=== PATIENT | female | born 1980 | race Caucasian/White ===

== ENCOUNTER 2022-07-04 10:42 | Emergency (ER) | payer BC ==
--- OUTSIDE RECORDS SUMMARY | 2022-07-04 10:52 | XMS REPORT | Continuity of Care Document ---
:1980 Author Organization [facility] t Address [address] [place] [address] Care Team Providers Name Role Phone SUMMER DIEGO Primary Care Physician Unavailable Norberto Parnell Attending Clinician Unavailable DR SUMMER DIEGO Attending Clinician Unavailable [phone] Attending Clinician Unavailable DR RUBEN RUSSO Attending Clinician Un available G_Pappas Attending Clinician Unavailable SUAD VALLES Attending Clinician Unavailable DR OCTAVIANO CHAN Attending Clinician Unavailable DR TRISTAN LEE Attending Clinician Unavailable Douglas_Michael Attending Clinician Unavailable DR CASSY GILLESPIE Attending Clinician Unavailable [phone] Attending Clinician Unavailable DR MARIA DOLORES JOSE Attending Clinician Unavailable [phone] Attending Clinician Unavailable [phone] Attending Clinician Unavailable DR CASSY GILLESPIE Attending Clinician Unavailable DR CHRISTIAON STRONG Attending Clinician Unavailable DR SUSAN HAGEN Attending Clinician Unavailable DR JAMES DIEGO Attending Clinician Unavailable DR XIMENA CAMPUZANO Attending Clinician Unavailable DR MELISSA JOHN Attending Clinician Unavailable BRANDIE, DR SANCHEZ Attending Clinician Unavailable , DR ANAYA Attending Clinician Unavailable FRANSISCA, DR KWONG Attending Clinician Unavailable DHARMESH Attending Clinician Unavailable SUMMER DIEGO Attending Clinician Unavailable EMILY, DR SARINA Holland Attending Clinician Unavailable SELINA, DR AKHTAR Attending Clinician Unavailable CORRINE HERRERA Attending Clinician Unavailable ROMEO, DR PALM Attending Clinician Unavailable KANDACE, DR POST Attending Clinician Unavailable TROY ALBRIGHT Attending Clinician Unavailable BRANDIE, DR WHEELER Admitting Clinician Unavailable BARRETT-IBITOYE, DR RUBEN ALICIA Admitting Clinician Un available G_Pappas Admitting Clinician Unavailable DUSTIN, DR BRUMFIELD Admitting Clinician Unavailable OLADE, DR HUDSON Admitting Clinician Unavailable Ayeni_Ibitoye_Olubu Admitting Clinician Unavailable SAMANTHA, DR CASSY Theodore Admitting Clinician Unavailable REBECA, DR WHITTEN Admitting Clinician Unavailable SAMANTHA, DR MADERA Admitting Clinician Unavailable BA, DR ALVARADO Admitting Clinician Unavailable XIAO, DR DAVIS Admitting Clinician Unavailable BRANDIE, DR JAMES Rueda Admitting Clinician Unavailable TATIANNA, DR BUENO Admitting Clinician Unavailable ALVARO, DR MELISSA Moore Admitting Clinician Unavailable BRANDIE, DR SANCHEZ Admitting Clinician Unavailable , DR ANAYA Admitting Clinician Unavailable FRANSISCA, DR KWONG Admitting Clinician Unavailable DHARMESH Admitting Clinician Unavailable SUMMER DIEGO Admitting Clinician Unavailable EMILY, DR SARINA Holland Admitting Clinician Unavailable SELINA, DR AKHTAR Admitting Clinician Unavailable CORRINE HERRERA Admitting Clinician Unavailable ROMEO, DR PALM Admitting Clinician Unavailable KANDACE, DR POST Admitting Clinician Unavailable TROY ALBRIGHT Admitting Clinician Unavailable Payers Payer Name Policy Type Policy Number Effective Date Expiration Date S ource BCBS/BLUE [id number] ADVANTAGE-HMO - OP BCBS[place] [id number] [place] [id number] [facility] (MEDICAID) [id number] 2022 00:00:00 [place] [id number] 2019 2022 ADVANTAGE (HMO) 00:00:00 00:00:00 [id number] 2018 00:00:00 [place] [id number] 2019 00:00:00 [place] [id number] [place] (PPO[place] [facility] [id number] 2015 [facility] 00:00:00 (MEDICAID HMO) Problems Condition Condition Condition Status Onset Resolution Last Treating Co mments Source Name Details Category Date Date Treatment Clinician Date Gastropare Gastropare Problem Active M atagor sis sis 8-30 da syndrome Syndrome 00:00: [facility] 00 al [facility] Program Biliary BILIARY Problem 2019-042020-02-24 EL colic COLIC 04-25 12:19:03 [facility] 02/24/2020 00:00: [facility] active 00 L [id number] HOSPITA SNOMED-CT L COVID-19 COVID-19 Problem 2019-12-03 EL 12/03/201912-02 16:56:11 [facility] active 00:00: [facility] [id number] L SNOMED-CT HOSPITA L Seizure SEIZURE Problem 2017-06-23 EL disorder DISORDER 08:44:15 [facility] active [facility] [id number] L SNOMED-CT HOSPITA L Drug DRUG Problem 2018-01-15 EL seeking SEEKING 11:32:21 [facility] [place] behavior BEHAVIOR [facility] active L [id number] HOSPITA SNOMED-CT L Renal RENAL Problem 2018-04-03 EL stone STONE 18:59:03 [facility] [place] active [facility] [id number] L SNOMED-CT HOSPITA L Migraine MIGRAINE Problem 2019-08-17 EL variants, VARIANTS, 21:51:31 [place] MPO intractabl INTRACTABL ME [facility] e E active L [id number] HOSPITA SNOMED-CT L Gallstone GALLSTONE Problem 2020-02-25 EL active 15:15:00 [facility] [place] [id number] [facility] SNOMED-CT L HOSPITA L Headache HEADACHE Problem 2019-06-23 EL active 22:23:11 [facility] [place] [id number] [facility] SNOMED-CT L HOSPITA L Insomnia INSOMNIA Problem 2017-07-01 EL active 00:51:53 [facility] [place] [id number] [facility] SNOMED-CT L HOSPITA L History of Past Illness Condition Condition Condition Status Onset Resolution Last Treating Co mments Source Name Details Category Date Date Treatment Clinician Date Encounter ENCOUNTER Problem 2020-06-29 2020-06-29 EL for other FOR OTHER 00:00:00 08:28:09 [facility] [place] specified SPECIFIED LILLIAM CLAIR surgical SURGICAL L aftercare [facility] 06/29/2020 L resolved [id number] SNOMED-CT Viral VIRAL Problem 2019-2020-06-19 2020-06-19 E L syndrome SYNDROME 8-21 00:00:00 13:34:18 [place] MPO 12/03/2019 00:00: [facility] 06/19/2020 00 L resolved HOSPITA [id number] L SNOMED-CT Nausea, NAUSEA, Problem 2020-06-19 2020-06-19 EL vomiting VOMITING 00:00:00 13:33:30 [place] MPO and AND [facility] diarrhea DIARRHEA L 06/19/2020 HOSPIT A resolved L [id number] SNOMED-CT Palpitatio PALPITATI Problem 2020-06-19 2020-06-19 EL ns ONS 00:00:00 13:35:01 [facility] 06/19/2020 [facility] resolved L [id number] HOSPITA SNOMED-CT L Shortness SHORTNESS Problem 2020-06-19 2020-06-19 EL of breath OF BREATH 00:00:00 13:32:00 [facility] 06/19/2020 [facility] A resolved L [id number] HOSPITA SNOMED-CT L Sinusitis SINUSITIS Problem 2020-06-19 2020-06-19 EL 06/19/2020 00:00:00 13:32:27 [place] MPO resolved [facility] [id number] L SNOMED-CT HOSPITA L Intractabl INTRACTAB Problem 2020-06-19 2020-06-19 EL e nausea LE NAUSEA 00:00:00 13:33:05 C AMPO and [facility] vomiting VOMITING L 06/19/2020 HOSPIT A resolved L [id number] SNOMED-CT Lactic LACTIC Problem 2020-06-19 2020-06-19 EL acidosis ACIDOSIS 00:00:00 13:33:19 [place] MPO 06/19/2020 [facility] resolved L [id number] HOSPITA SNOMED-CT L Encounter ENCOUNTER Problem 2020-06-19 2020-06-19 EL for FOR 00:00:00 13:34:51 [facility] [place] observatio OBSERVATIO ME [facility] n for N FOR L suspected SUSPECTED HOSP PIOTR exposure EXPOSURE L to other TO OTHER biological BIOLOGICAL agents AGENTS ruled out RULE 06/19/2020 resolved [id number] SNOMED-CT Viral VIRAL Problem 2020-06-19 2020-06-19 E L pharyngiti PHARYNGITI 00:00:00 13:34:36 [facility] [place] s S [facility] 06/19/2020 L resolved HOSPITA [id number] L SNOMED-CT Acute URI ACUTE URI Problem 2020-06-19 2020-06-19 EL 00:00:00 13:34:10 [place] MPO 1 resolved [facility] [id number] L SNOMED-CT HOSPITA L Exposure EXPOSURE Problem 2020-06-19 2020-06-19 EL to TO 00:00:00 13:34:02 [facility] COVID-19 COVID-19 [facility] 06/19/2020 L resolved HOSPITA [id number] L SNOMED-CT Diarrhea DIARRHEA Problem 2020-06-19 2020-06-19 EL 06/19/2020 00:00:00 13:33:54 [place] MPO resolved [facility] [id number] L SNOMED-CT HOSPITA L Cellulitis CELLULITI Problem 2020-06-19 2020-06-19 EL S 00:00:00 13:34:28 [facility] 06/19/2020 [facility] A resolved L [id number] HOSPITA SNOMED-CT L Problem 2020-06-19 2020-06-19 EL finding FINDING 00:00:00 13:35:23 [facility] 06/19/2020 [facility] A resolved L [id number] HOSPITA SNOMED-CT L Multiple MULTIPLE Problem 2020-06-19 2020-06-19 EL skin tags SKIN TAGS 00:00:00 13:32:11 [facility] 06/19/2020 [facility] A resolved L [id number] HOSPITA SNOMED-CT L Abdominal ABDOMINAL Problem 2020-06-19 2020-06-19 EL pain PAIN 00:00:00 13:33:40 [facility] 06/19/2020 [facility] A resolved L [id number] HOSPITA SNOMED-CT L UTI UTI Problem 2020-06-19 2020-06-19 E L 06/19/2020 00:00:00 13:32:55 [place] MPO resolved [facility] [id number] L SNOMED-CT HOSPITA L Acute ACUTE Problem 2020-06-19 2020-06-19 E L lower back LOWER BACK 00:00:00 13:32:37 [facility] pain PAIN [facility] 06/19/2020 L resolved HOSPITA [id number] L SNOMED-CT Musculoske MUSCULOSK Problem 2020-06-19 2020-06-19 EL letal pain ELETAL 00:00:00 13:32:47 [place] MPO PAIN [facility] 06/19/2020 L resolved HOSPITA [id number] L SNOMED-CT History of HISTORY Problem 2020-06-03 2020-06-03 EL migraine OF 00:00:00 08:34:35 [facility] MIGRAINE [facility] 06/03/2020 L resolved HOSPITA [id number] L SNOMED-CT Migraine MIGRAINE Problem 2018-2018-11-13 2018-11-14 EL 11/13/201811-14 00:00:00 19:27:24 [place] MPO resolved 00:00: [facility] [id number] 00 L SNOMED-CT HOSPITA L Allergies, Adverse Reactions, Alerts Allergy Allergy Status Severity Reaction(s) Onset Inactive Treating Comm ents Source Name Type Date Date Clinician Toradol DA Active Unknown [facility] 00:00: Center 00 [place] Drug Active EL C allergy [facility] (disorde [facility] r) L HOSPITA L IODINE Drug Active EL allergy [facility] (disorde [facility] r) L HOSPITA L DILAUDID Drug Active EL allergy [facility] (disorde [facility] r) L HOSPITA L BENADRYL Drug Active EL allergy [facility] (disorde [facility] r) L HOSPITA L Tramadol DA Active Unknown [facility] Sumatrip DA Active Unknown [facility] Hydromor DA Active Unknown [facility] Iodine DA Active Unknown [facility] Benadryl DA Active Unknown [facility] Dilaudid DA Active Unknown [facility] KETOROLA DA Active MODERATE RASH, NAUSEA [facility] IODINE DA Active UNKNOWN [facility] DILAUDID DA Active [facility] BENADRYL DA Active UNKNOWN [facility] Social History Smoking Status Start Date Stop Date Source Never smoker (Never Smoked) Medications Ordered Filled Start Stop Current Ordering Indication Dosage Frequency Signature Comments Components Source Medication Medication Date Date Medication? Clinician (SIG) Name Name Amboctavia 10MG No 10MILLI Ambien [facility]COAS Oral Tablet 3-08 GRAMS 10MG Oral T 00:00: Tablet MEDICAL 00 06/19/2020 CLINIC Unknown ORAL Bedtime 10 MILLIGRAMS [id number] RxNorm TAKE 10 MILLIGRAMS ORAL Bedtime Keppra No 1TABLET Keppra MIDCO 1000MG Oral 3-08 1000MG T Tablet 00:00: Oral MEDICAL 00 Tablet CLINIC 06/19/2020 Unknown BY MOUTH Twice A Day 1 TABLET [id number] RxNorm TAKE 1 TABLET BY MOUTH Twice A Day Paxil 10MG 2019-04 No 1TABLET Paxil CO DCOAS Oral Tablet 1-12 10MG Oral T 00:00: Tablet MEDICAL 00 02/24/2020 CLINIC Unknown BY MOUTH Daily 1 TABLET [id number] RxNorm TAKE 1 TABLET BY MOUTH Daily Protonix 20 2019-04 No 1TABLET Protonix MIDCOAS MG Oral 1-12 20 MG Oral T Tablet, 00:00: Tablet, MEDICAL Delayed 00 Delayed CLINIC Release Release 02/24/2020 Unknown BY MOUTH Daily 1 TABLET [id number] RxNorm TAKE 1 TABLET BY MOUTH Daily Cholestyram Cholestyram No Cholestyra [place] ine Light 4 ine Light 4 mine Light da gram oral gram oral 4 gram Epi scop powder MIX powder MIX oral al ONE (1) ONE (1) powder MIX Hea lth SCOOP IN A SCOOP IN A ONE (1) Outreac CUP OF CUP OF SCOOP IN A h WATER AND WATER AND CUP OF Pro gram DRINK EVERY DRINK EVERY WATER AND 12 HOURS 12 HOURS DRINK FOR UP TO 5 FOR UP TO 5 EVERY 12 DAYS. DAYS. HOURS FOR UP TO 5 DAYS. dicyclomine dicyclomine No dicyclomin [place] 10 mg 10 mg e 10 mg da capsule capsule capsule [facility] p TAKE ONE TAKE ONE TAKE ONE al (1) (1) (1) Health CAPSULE(S) CAPSULE(S) CAPSULE(S) Outreac BY MOUTH BY MOUTH BY MOUTH h FOUR TIMES FOUR TIMES FOUR TIMES Program A DAY A DAY A DAY BEFORE BEFORE BEFORE MEALS MEALS MEALS NEEDED FOR NEEDED FOR NEEDED FOR ABDOMINAL ABDOMINAL ABDOMINAL PAIN. PAIN. PAIN. dicyclomine dicyclomine No 1 QID dicyclomin [place] 20 mg 20 mg e 20 mg da tablet Take tablet Take tablet [facility] 1 tablet 4 1 tablet 4 Take 1 a l times a day times a day tablet 4 Health by oral by oral times a Outrea c route as route as day by h needed. needed. oral route Pro gram as needed. hyoscyamine hyoscyamine No 1 Q12H hyoscyamin [place] ER 0.125 mg ER 0.125 mg e ER 0.125 da and 0.25 mg and 0.25 mg mg and [facility] (0.375 mg) (0.375 mg) 0.25 mg al tablet,exte tablet,exte (0.375 mg) Health nded nded tablet,ext Outreac release release ended h Take 1 Take 1 release Program tablet tablet Take 1 every 12 every 12 tablet hours by hours by every 12 oral route. oral route. hours by oral route. levetiracet levetiracet No levetirace [place] am 500 mg am 500 mg cosby 500 mg da tablet TAKE tablet TAKE tablet [facility] ONE (1) ONE (1) TAKE ONE al TABLET(S) TABLET(S) (1) Healt h BY MOUTH BY MOUTH TABLET(S) Ou treac TWICE A TWICE A BY MOUTH h DAY. DAY. TWICE A Program DAY. lorazepam 1 lorazepam 1 No lorazepam [place] mg tablet mg tablet 1 mg da [facility] pantoprazol pantoprazol No pantoprazo [place] e 40 mg e 40 mg le 40 mg da tablet,soila tablet,soila tablet,del [facility] yed release yed release ayed a l TAKE ONE TAKE ONE release Heal th (1) (1) TAKE ONE Outreac TABLET(S) TABLET(S) (1) h BY MOUTH BY MOUTH TABLET(S) Pr ogram ONCE A DAY. ONCE A DAY. BY MOUTH ONCE A DAY. paroxetine paroxetine No paroxetine [place] 20 mg 20 mg 20 mg da tablet tablet tablet [facility] Protonix Protonix No Protonix [place] [facility] [facility] topiramate topiramate No topiramate [place] 100 mg 100 mg 100 mg da tablet tablet tablet [facility] Vienva 0.1 Vienva 0.1 No 1 Q1D Vienva 0.1 [place] mg-20 mcg mg-20 mcg mg-20 mcg da tablet Take tablet Take tablet [facility] 1 tablet 1 tablet Take 1 al every day every day tablet Hea lth by oral by oral every day Outr eac route. route. by oral h route. Program zolpidem 10 zolpidem 10 No zolpidem [place] mg tablet mg tablet 10 mg da TAKE 1 TAKE 1 tablet [facility] TABLET BY TABLET BY TAKE 1 al MOUTH AT MOUTH AT TABLET BY He alth BEDTIME BEDTIME MOUTH AT Outreac NEEDED FOR NEEDED FOR BEDTIME h SLEEP SLEEP NEEDED FOR Program SLEEP dicyclomine dicyclomine No dicyclomin [place] 20 mg 20 mg e 20 mg da tablet TAKE tablet TAKE tablet [facility] ONE (1) ONE (1) TAKE ONE al TABLET(S) TABLET(S) (1) Healt h BY MOUTH BY MOUTH TABLET(S) Ou treac FOUR TIMES FOUR TIMES BY MOUTH h A DAY A DAY FOUR TIMES P rogram NEEDED. NEEDED. A DAY NEEDED. erythromyci erythromyci No 5mL BID erythromyc [place] n n in da ethylsuccin ethylsuccin ethylsucci [facility] ate 400 ate 400 mack 400 al mg/5 mL mg/5 mL mg/5 mL Health oral powder oral powder [facility] for h suspension suspension suspension Program Take 5 mL Take 5 mL Take 5 mL twice a day twice a day twice a by oral by oral day by route for route for oral route 14 days. 14 days. for 14 days. hyoscyamine hyoscyamine No hyoscyamin [place] sulfate sulfate e sulfate da 0.125 mg 0.125 mg 0.125 mg Epi scop tablet TAKE tablet TAKE tablet al ONE (1) ONE (1) TAKE ONE Healt h TABLET(S) TABLET(S) (1) Outre ac BY MOUTH BY MOUTH TABLET(S) h EVERY FOUR EVERY FOUR BY MOUTH Program HOURS HOURS EVERY FOUR NEEDED FOR NEEDED FOR HOURS 7 DAYS. 7 DAYS. NEEDED FOR 7 DAYS. levetiracet levetiracet No levetirace [place] am 500 mg am 500 mg cosby 500 mg da tablet TAKE tablet TAKE tablet [facility] ONE (1) ONE (1) TAKE ONE al TABLET(S) TABLET(S) (1) Healt h BY MOUTH BY MOUTH TABLET(S) Ou treac TWICE A TWICE A BY MOUTH h DAY. DAY. TWICE A Program DAY. Librax Librax No 1capsul QID Librax [place] [facility] (with (with e(s) (with da clidinium) clidinium) clidinium) [facility] 5 mg-2.5 mg 5 mg-2.5 mg 5 mg-2.5 al capsule capsule mg capsule Hea lth Take 1 Take 1 Take 1 Outreac capsule 4 capsule 4 capsule 4 h times a day times a day times a Program by oral by oral day by route as route as oral route needed. needed. as needed. lorazepam 1 lorazepam 1 No lorazepam [place] mg tablet mg tablet 1 mg da TAKE ONE TAKE ONE tablet [facility] (1) (1) TAKE ONE al TABLET(S) TABLET(S) (1) Healt h BY MOUTH BY MOUTH TABLET(S) Ou treac ONCE A DAY ONCE A DAY BY MOUTH h NEEDED. NEEDED. ONCE A DAY Program NEEDED. metoclopram metoclopram No metoclopra [place] waleska 10 mg waleska 10 mg mide 10 mg da tablet TAKE tablet TAKE tablet [facility] ONE (1) ONE (1) TAKE ONE al TABLET(S) TABLET(S) (1) Healt h BY MOUTH BY MOUTH TABLET(S) Ou treac FOUR TIMES FOUR TIMES BY MOUTH h A DAY A DAY FOUR TIMES Program BEFORE BEFORE A DAY MEALS. MEALS. BEFORE MEALS. pantoprazol pantoprazol No pantoprazo [place] e 40 mg e 40 mg le 40 mg da tablet,soila tablet,soila tablet,del [facility] yed release yed release ayed a l TAKE ONE TAKE ONE release Heal th (1) (1) TAKE ONE Outreac TABLET(S) TABLET(S) (1) h BY MOUTH BY MOUTH TABLET(S) Pr ogram ONCE A DAY. ONCE A DAY. BY MOUTH ONCE A DAY. topiramate topiramate No topiramate [place] 100 mg 100 mg 100 mg da tablet TAKE tablet TAKE tablet [facility] ONE (1) ONE (1) TAKE ONE al TABLET(S) TABLET(S) (1) Healt h BY MOUTH BY MOUTH TABLET(S) Ou treac TWICE A TWICE A BY MOUTH h DAY. DAY. TWICE A Program DAY. Vienva 0.1 Vienva 0.1 No Vienva 0.1 [place] mg-20 mcg mg-20 mcg mg-20 mcg da tablet TAKE tablet TAKE tablet [facility] ONE (1) ONE (1) TAKE ONE al TABLET(S) TABLET(S) (1) Healt h BY MOUTH BY MOUTH TABLET(S) Ou treac EVERY DAY. EVERY DAY. BY MOUTH h EVERY DAY. Program Xifaxan 550 Xifaxan 550 No 1 TID Xifaxan [place] mg tablet mg tablet 550 mg da Take 1 Take 1 tablet [facility] tablet 3 tablet 3 Take 1 al times a day times a day tablet 3 Health by oral by oral times a Outrea c route for route for day by h 14 days. 14 days. oral route P rogram for 14 days. zolpidem 10 zolpidem 10 No zolpidem [place] mg tablet mg tablet 10 mg da TAKE ONE TAKE ONE tablet [facility] (1) (1) TAKE ONE al TABLET(S) TABLET(S) (1) Healt h BY MOUTH BY MOUTH TABLET(S) Ou treac EVERY DAY EVERY DAY BY MOUTH h AT BEDTIME AT BEDTIME EVERY DAY Program FOR 30 FOR 30 AT BEDTIME DAYS. DAYS. FOR 30 DAYS. dicyclomine dicyclomine No dicyclomin [place] 20 mg 20 mg e 20 mg da tablet TAKE tablet TAKE tablet [facility] ONE (1) ONE (1) TAKE ONE al TABLET(S) TABLET(S) (1) Healt h BY MOUTH BY MOUTH TABLET(S) Ou treac FOUR TIMES FOUR TIMES BY MOUTH h A DAY A DAY FOUR TIMES P rogram NEEDED. NEEDED. A DAY NEEDED. erythromyci erythromyci No erythromyc [place] n n in da ethylsuccin ethylsuccin ethylsucci [facility] ate 400 ate 400 mack 400 al mg/5 mL mg/5 mL mg/5 mL Health oral powder [facility] for h suspension suspension suspension Program Take 5 mL Take 5 mL Take 5 mL twice a day twice a day twice a by oral by oral day by route for route for oral route 14 days. 14 days. for 14 days. hyoscyamine hyoscyamine No hyoscyamin [place] sulfate sulfate e sulfate da 0.125 mg 0.125 mg 0.125 mg Epi scop tablet TAKE tablet TAKE tablet al ONE (1) ONE (1) TAKE ONE Healt h TABLET(S) TABLET(S) (1) Outre ac BY MOUTH BY MOUTH TABLET(S) h EVERY FOUR EVERY FOUR BY MOUTH Program HOURS HOURS EVERY FOUR NEEDED FOR NEEDED FOR HOURS 7 DAYS. 7 DAYS. NEEDED FOR 7 DAYS. levetiracet levetiracet No levetirace [place] am 500 mg am 500 mg cosby 500 mg da tablet TAKE tablet TAKE tablet [facility] ONE (1) ONE (1) TAKE ONE al TABLET(S) TABLET(S) (1) Healt h BY MOUTH BY MOUTH TABLET(S) [facility]ac TWICE A TWICE A BY MOUTH h DAY. DAY. TWICE A Program DAY. lorazepam 1 lorazepam 1 No lorazepam [place] mg tablet mg tablet 1 mg da TAKE ONE TAKE ONE tablet [facility] (1) (1) TAKE ONE al TABLET(S) TABLET(S) (1) Healt h BY MOUTH BY MOUTH TABLET(S) Ou treac ONCE A DAY ONCE A DAY BY MOUTH h NEEDED. NEEDED. ONCE A DAY Program NEEDED. metoclopram metoclopram No metoclopra [place] 10 mg waleska 10 mg mide 10 mg da tablet TAKE tablet TAKE tablet [facility] ONE (1) ONE (1) TAKE ONE al TABLET(S) TABLET(S) (1) Healt h BY MOUTH BY MOUTH TABLET(S) Ou treac FOUR TIMES FOUR TIMES BY MOUTH h A DAY A DAY FOUR TIMES Program BEFORE BEFORE A DAY MEALS. MEALS. BEFORE MEALS. omeprazole omeprazole No 1capsul Q1D omeprazole [place] 40 mg 40 mg e(s) 40 mg da capsule,del capsule,del capsule,de [facility] ayed ayed layed al release release release Health Take 1 Take 1 Take 1 Outreac capsule capsule capsule h every day every day every day Program by oral by oral by oral route for route for route for 30 days. 30 days. 30 days. pantoprazol pantoprazol No pantoprazo [place] e 40 mg e 40 mg le 40 mg da tablet,soila tablet,soila tablet,del [facility] yed release yed release ayed a l TAKE ONE TAKE ONE release Heal th (1) (1) TAKE ONE Outreac TABLET(S) TABLET(S) (1) h BY MOUTH BY MOUTH TABLET(S) Pr ogram ONCE A DAY. ONCE A DAY. BY MOUTH ONCE A DAY. topiramate topiramate No topiramate [place] 100 mg 100 mg 100 mg da tablet TAKE tablet TAKE tablet [facility] ONE (1) ONE (1) TAKE ONE al TABLET(S) TABLET(S) (1) Healt h BY MOUTH BY MOUTH TABLET(S) Ou treac TWICE A DAY TWICE A DAY BY MOUTH h TWICE A Program DIRECTED. DIRECTED. DAY DIRECTED. Vienva 0.1 Vienva 0.1 No Vienva 0.1 [place] mg-20 mcg mg-20 mcg mg-20 mcg da tablet TAKE tablet TAKE tablet [facility] ONE (1) ONE (1) TAKE ONE al TABLET(S) TABLET(S) (1) Healt h BY MOUTH BY MOUTH TABLET(S) Ou treac EVERY DAY. EVERY DAY. BY MOUTH h EVERY DAY. Program zolpidem 10 zolpidem 10 No zolpidem [place] mg tablet mg tablet 10 mg da TAKE ONE TAKE ONE tablet [facility] (1) (1) TAKE ONE al TABLET(S) TABLET(S) (1) Healt h BY MOUTH BY MOUTH TABLET(S) Ou treac EVERY DAY EVERY DAY BY MOUTH h AT BEDTIME AT BEDTIME EVERY DAY Program FOR 30 FOR 30 AT BEDTIME DAYS. DAYS. FOR 30 DAYS. Vital Signs Vital Name Observation Time Observation Value Comments Source Height 2022-06-13 08:58:00 172.72 CM Weight 2022-06-13 08:58:00 92.53 KG Height 2022-06-11 20:46:00 157.48 CM Weight 2022-06-11 20:46:00 93.89 KG BP Diastolic 2022-02-19 00:00:00 60 mm[Hg] [facility] Height 2022-02-19 00:00:00 62 [in_i] [facility] BMI (Body Mass 2022-02-19 00:00:00 38.2 kg/m2 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 BP Systolic 2022-02-19 00:00:00 116 mm[Hg] [facility] Body Weight 2022-02-19 00:00:00 209 [lb_av] [place] [facility] BP Diastolic 2022-01-14 00:00:00 70 mm[Hg] [place] [facility] Height 2022-01-14 00:00:00 62 [in_i] [place] [facility] BMI (Body Mass 2022-01-14 00:00:00 38.6 kg/m2 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 BP Systolic 2022-01-14 00:00:00 106 mm[Hg] [place] [facility] Body Weight 2022-01-14 00:00:00 211 [lb_av] [facility] Height 2021-12-02 12:18:00 160.02 CM Weight 2021-12-02 12:18:00 96.43 KG BP Diastolic 2021-11-26 00:00:00 78 mm[Hg] [facility] Height 2021-11-26 00:00:00 62 [in_i] [place] [facility] BMI (Body Mass 2021-11-26 00:00:00 39.5 kg/m2 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 BP Systolic 2021-11-26 00:00:00 109 mm[Hg] [place] [facility] Body Weight 2021-11-26 00:00:00 216 [lb_av] [place] [facility] BP Diastolic 2021-09-03 00:00:00 69 mm[Hg] [place] [facility] Height 2021-09-03 00:00:00 62 [in_i] [place] [facility] BMI (Body Mass 2021-09-03 00:00:00 42 kg/m2 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 BP Systolic 2021-09-03 00:00:00 107 mm[Hg] [place] [facility] Body Weight 2021-09-03 00:00:00 229.8 [lb_av] [facility] Height 2021-05-12 07:36:00 160.02 CM Weight 2021-05-12 07:36:00 97.97 KG Height 2021-05-10 21:14:00 160.02 CM Weight 2021-05-10 21:14:00 117.93 KG Height 2021-03-04 11:16:00 157.48 CM Weight 2021-03-04 11:16:00 106.95 KG Height 2021-02-16 17:23:00 160.02 CM Weight 2021-02-16 17:23:00 103.41 KG Weight 2021-02-04 22:37:00 110.3 KG Height 2021-02-03 08:09:00 160.02 CM Weight 2021-02-03 08:09:00 106.14 KG Height 2021-01-26 17:20:00 160.02 CM Weight 2021-01-26 17:20:00 106.59 KG Height 2021-01-24 14:09:00 160.02 CM Weight 2021-01-24 14:09:00 106.14 KG Height 2020 13:16:00 157.48 CM Weight 2020 13:16:00 104.77 KG Height 2020-12-02 16:26:00 157.48 CM Weight 2020-12-02 16:26:00 104.32 KG Height 2020-11-14 19:01:00 157.48 CM Weight 2020-11-14 19:01:00 100.24 KG Height 2020-09-08 19:21:00 157.48 CM Weight 2020-09-08 19:21:00 99.79 KG Height 2020-09-03 18:28:00 157.48 CM Weight 2020-09-03 18:28:00 101.15 KG BP Diastolic 2020-08-09 00:00:00 88 mm[Hg] [facility] Height 2020-08-09 00:00:00 62 [in_i] [facility] BMI (Body Mass 2020-08-09 00:00:00 43.5 kg/m2 [facility] 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 [facility] Index) [facility] BP Systolic 2020-08-09 00:00:00 131 mm[Hg] [place] [facility] Body Weight 2020-08-09 00:00:00 238 [lb_av] [place] [facility] Height 2020-06-03 18:07:00 160.02 CM Weight 2020-06-03 18:07:00 106.59 KG Height 2020-02-24 05:43:00 160.02 CM Weight 2020-02-24 05:43:00 104.32 KG BP Diastolic 2020-02-23 00:00:00 110 mm[Hg] [place] [facility] Height 2020-02-23 00:00:00 62 [in_i] [place] [facility] BMI (Body Mass 2020-02-23 00:00:00 43 kg/m2 [facility] 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 [facility] Index) [facility] BP Systolic 2020-02-23 00:00:00 134 mm[Hg] [place] [facility] Body Weight 2020-02-23 00:00:00 235 [lb_av] [place] [facility] Height 2020-01-31 12:13:00 162.56 CM Weight 2020-01-31 12:13:00 105.95 KG Height 2020-01-12 00:00:00 62 [in_i] [place] [facility] BMI (Body Mass 2020-01-12 00:00:00 42.9 kg/m2 [facility] 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 [facility] Index) [facility] Body Weight 2020-01-12 00:00:00 234.4 [lb_av] [place] [facility] Height 2019-12-04 15:38:00 157.48 CM Weight 2019-12-04 15:38:00 97.52 KG BP Diastolic 2019-11-23 00:00:00 77 mm[Hg] [place] [facility] Height 2019-11-23 00:00:00 62 [in_i] [place] [facility] BMI (Body Mass 2019-11-23 00:00:00 40.9 kg/m2 [place] 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 [facility] Index) [facility] BP Systolic 2019-11-23 00:00:00 122 mm[Hg] [place] [facility] Body Weight 2019-11-23 00:00:00 223.4 [lb_av] [place] [facility] BP Diastolic 2019-11-15 00:00:00 85 mm[Hg] [place] [facility] Height 2019-11-15 00:00:00 62 [in_i] [place] [facility] BMI (Body Mass 2019-11-15 00:00:00 42.7 kg/m2 [facility] 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 [facility] Index) [facility] BP Systolic 2019-11-15 00:00:00 120 mm[Hg] [place] [facility] Body Weight 2019-11-15 00:00:00 233.4 [lb_av] [place] [facility] BP Diastolic 2019-11-04 00:00:00 87 mm[Hg] [place] [facility] Height 2019-11-04 00:00:00 62 [in_i] [place] [facility] BMI (Body Mass 2019-11-04 00:00:00 42.2 kg/m2 [facility] 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 [facility] Index) [facility] BP Systolic 2019-11-04 00:00:00 128 mm[Hg] [place] [facility] Body Weight 2019-11-04 00:00:00 230.6 [lb_av] [place] [facility] BP Diastolic 2019-08-25 00:00:00 86 mm[Hg] [place] [facility] Height 2019-08-25 00:00:00 62 [in_i] [place] [facility] BMI (Body Mass 2019-08-25 00:00:00 41.9 kg/m2 [facility] 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 [facility] Index) [facility] BP Systolic 2019-08-25 00:00:00 135 mm[Hg] [place] [facility] Body Weight 2019-08-25 00:00:00 229 [lb_av] [place] [facility] Height 2019-08-17 09:18:00 160.02 CM Weight 2019-08-17 09:18:00 83.91 KG BP Diastolic 2019-08-12 00:00:00 100 mm[Hg] [place] [facility] Height 2019-08-12 00:00:00 62 [in_i] [facility] BMI (Body Mass 2019-08-12 00:00:00 41.9 kg/m2 [place] 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 [facility] Index) [facility] BP Systolic 2019-08-12 00:00:00 154 mm[Hg] [facility] Body Weight 2019-08-12 00:00:00 229 [lb_av] [facility] Weight 2019-08-10 12:59:00 90.71 KG Height 2019-07-01 05:42:00 157.48 CM Weight 2019-07-01 05:42:00 90.71 KG Weight 2019-06-28 07:42:00 90.71 KG Height 2019-06-23 21:30:00 157.48 CM Weight 2019-06-23 21:30:00 90.71 KG Height 2019-03-12 08:08:00 157.48 CM Weight 2019-03-12 08:08:00 88.9 KG Procedures Procedure Date / Time Performing Clinician Source Performed Esophagogastroduodenoscopy 2022-02-06 00:00:00 [place] [facility] Colonoscopy 2021 00:00:00 [facility] NM, gastric emptying scan 2021-11-26 00:00:00 [place] [facility] [place], transvaginal 2020-08-09 00:00:00 [facility] Cholecystectomy 2020-03-06 00:00:00 Hendrix [facility] [place], abdomen, complete 2020-02-23 00:00:00 [facility] 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 [facility] [place], transvaginal 2019-08-25 00:00:00 [facility] Delivery [facility]rix [facility] Procedure on Gallbladder [place] [facility] Plan of Care Planned Activity Planned Date Details Comments Source Diagnostic Test 2022-01-14 gastrin, serum [code [place] [facility] Pending 00:00:00 = gastrin, serum] [facility] reach Program Diagnostic Test 2022-01-14 5-hiaa/creatinine, [place] 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 [facility] Pending 00:00:00 ratio, 24h urine Health Outr each [code = Program 5-hiaa/creatinine, ratio, 24h urine] Diagnostic Test 2022-01-14 metanephrine, Hendrix E piscopal Pending 00:00:00 24-hour urine [code Health O utreach = metanephrine, Program 24-hour urine] Diagnostic Test 2022-01-14 histamine, 24-hour [place] 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 [facility] Pending 00:00:00 urine [code = Health Outreac h histamine, 24-hour Program urine] Diagnostic Test 2022-01-14 vasoactive Hendrix Ep iscopal Pending 00:00:00 intestinal peptide Health Ou treach (vip), serum [code = Program vasoactive intestinal peptide (vip), serum] Diagnostic Test 2022-01-14 calcitonin, serum [place] [facility] Pending 00:00:00 [code = calcitonin, Health O utreach serum] Program Diagnostic Test 2022-01-14 somatostatin, plasma [place] [facility] Pending 00:00:00 [code = Health Outreach somatostatin, Program plasma] Diagnostic Test 2022-01-14 acth, plasma [code = [place] [facility] Pending 00:00:00 acth, plasma] Health Outreac h Program Diagnostic Test 2022-01-14 TSH + free T4, serum [place] [facility] Pending 00:00:00 [code = TSH + free Health Ou treach T4, serum] Program Encounters Start End Encounter Admission Attending Care Care Encounter Source Date/Time Date/Time Type Type Clinicians Facility Department ID 2022-06-24 Inpatient ROSSY Smith AULTMAN [facility] [id number] [place] 14:30:00 Norberto [id number] Critical access hospital 2022-04-26 Outpatient [facility] [place]IE[place] [id number] 14:13:21 [id number] [facility] 2022-04-15 Outpatient SUMMER DIEGO ELCAMPO ELCAMPO [id number] El 09:08:45 [id number] [facility] 2022-01-29 Outpatient ELCAMPO ELCAMPO [id number] El 10:39:13 [id number] [facility] 2021-12-13 Outpatient ELCAMPO ELCAMPO [id number] El 11:52:05 [id number] [facility] 2021-12-12 Outpatient ELCAMPO ELCAMPO [id number] El 10:40:23 [id number] [facility] 2021-12-11 Outpatient ELCAMPO ELCAMPO [id number] El 12:30:05 [id number] [facility] 2020-09-08 Inpatient C LUCY [facility] [id number] [facility] 14:14:00 LARA [facility] 2022-07-01 2022-07-01 Outpatient G_Pappas [facility] [id number] [place] 00:00:00 00:00:00 0320 [facility] 2022-06-25 2022-06-25 [id number] 13:07:00 17:35:00 SUAD [facility] 2022-06-24 2022-06-24 Outpatient G_Pappas MMG MMG [id number] [place] 00:00:00 00:00:00 0313 [facility] 2022-06-13 2022-06-13 Emergency E DUSTIN [facility] [id number] [facility] 08:48:00 11:02:00 OCTAVIANO [facility] 2022-06-11 2022-06-11 Outpatient E ROSA [facility] [id number] [facility] 20:24:00 21:17:00 TRISTAN [facility] 2022-06-07 2022-06-07 Outpatient N SUM[facility] [place] ELCAMPO NON EVELYN [facility] [id number] El 13:05:00 13:05:00 [id number] [facility] 2022-06-07 2022-06-07 Outpatient SUMMER RUSSELL KENNY DIEGO [id number] El 10:42:00 00:00:00 [id number] DANO [facility] 2022-05-13 2022-05-13 Outpatient M [facility] [place] [facility] [id number] El 13:35:00 00:00:00 [id number] [facility]O [facility] 2022-04-23 2022-04-23 Outpatient M SUM[facility] DIEGO KENNY DIEGO [id number] El 14:13:00 00:00:00 [id number] [facility] 2022-04-12 2022-04-12 Outpatient M SUM[facility] DIEGO KENNY DIEGO [id number] El 09:13:00 00:00:00 [id number] [facility]O [facility] 2022-04-11 2022-04-11 Outpatient SUMMER RUSSELL KENNY [place]IE[place] [id number] El 23:42:00 00:00:00 [id number] [facility] 2022-04-09 2022-04-09 Outpatient [facility] [place] [facility] [id number] El 16:41:00 00:00:00 [id number] [facility]O [facility] 2022-04-02 2022-04-02 Outpatient N SUM[facility] [place] MAMMO [id number] El 15:48:00 15:48:00 [id number] [facility] 2022-03-21 2022-03-21 Outpatient N [facility] [place] NON [facility] [id number] El 13:23:00 13:23:00 [id number] [facility] 2022-03-21 2022-03-21 Outpatient M [facility] [place] KENNY DIAZEN [id number] El 14:02:00 00:00:00 [id number] [facility]ANO [facility] 2022-03-14 2022-03-14 Outpatient SUMMER RUSSELL [id number] El 15:24:00 00:00:00 [id number] [facility] 2022-03-04 2022-03-04 Outpatient SUMMER RUSSELL [id number] El 08:30:00 00:00:00 [id number] [facility] 2022-02-20 2022-02-20 Outpatient Ayeni_[place]bito [place] [id number] [place] 00:00:00 00:00:00 ye[facility]ubu [facility] 2022-02-20 2022-02-20 Outpatient [place] [id number] [place] 00:00:00 00:00:00 ye_Olubu 0309 [facility] 2022-02-19 2022-02-19 Outpatient [place] [id number] [place] 00:00:00 00:00:00 ye_Olubu 1108 [facility] 2022-02-19 2022-02-19 Cassy Hartman [facility] [place] - [id number] [place] 00:00:00 00:00:00 Abelardo Gillespie MD: [id number] Y[facility]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 2022-02-18 2022-02-18 Outpatient Ayeni_Ibito [place] [id number] [place] 00:00:00 00:00:00 ye_Olubu 1107 [facility] 2022-02-12 2022-02-12 Outpatient [id number] 15:42:00 15:42:00 [id number] 2022-02-12 2022-02-12 Outpatient N SUMMER DIEGOTHE [place] NON EVELYN ENT [id number] El 15:42:00 15:42:00 [id number] [facility] 2022-02-12 2022-02-12 Outpatient M SUM[facility] [place]IE[place] [id number] El 10:35:00 00:00:00 [id number] DANO [facility] 2022-02-06 2022-02-06 [facility] MALINA RONALD [id number] El 07:22:00 10:30:00 [id number] [facility] 2022-02-04 2022-02-04 Outpatient N MARIA DOLORES JOSE [facility] [id number] El 15:45:00 15:45:00 [id number] Cam [facility] [id number] [facility] 2022-01-15 2022-01-15 Outpatient [place] [id number] [place] 00:00:00 00:00:00 ye_Olubu 1004 [facility] 2022-01-14 2022-01-14 Outpatient [place] [id number] [place] 00:00:00 00:00:00 ye_Olubu 1003 [facility] 2022-01-14 2022-01-14 Cassy Hartman [facility] [place] - [id number] [place] 00:00:00 00:00:00 Abelardo Gillespie MD: [id number] 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 2021 2021 Outpatient N CASSY GILLESPIE [facility] DAY MALINA RONALD [id number] El 07:28:00 10:56:00 [id number] [facility] 2021-12-13 2021-12-13 Outpatient N [facility]IA DOLORES [facility] [id number] [place] 12:00:00 12:00:00 [id number] Cam po [id number] [facility] 2021-12-11 2021-12-11 Outpatient N CASSY GILLESPIE [facility] [id number] El 12:27:00 12:27:00 [id number] [facility] 2021-12-02 2021-12-02 Emergency E BACHRISTIANO [facility] [id number] [facility] 12:18:00 15:07:00 Medica l Bostic 2021-11-26 2021-11-26 Cassysalo Hartman Ayeni_Ibito [facility] - 955 [place] 00:00:00 00:00:00 Jesse Gillespie 0815 cindy moore MD: [id number] 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 2021-09-03 2021-09-03 Olubukola Ayeni_Ibito [facility] [place] - [id number] [place] 00:00:00 00:00:00 Omobolaji Jesse Hendrix 0523 d oscar Hopper MD: Yazdanism Epi scop [id number] [address] , Ph. 2021-08-30 2021-08-30 Outpatient Ayeni_Ibito [place] [id number] [place] 05:10:00 05:10:00 Jesse 0519 da [facility] 2021-05-12 2021-05-12 Outpatient E SUSAN HAGEN [facility] [id number] [facility] 07:29:00 09:35:00 Medica l Bostic 2021-05-10 2021-05-10 Outpatient E DIEGO, JAMES [facility] [id number] [facility] 21:03:00 23:45:00 Medica l Center 2021-03-04 2021-03-04 Emergency E OETaylor, [facility] [id number] [facility] 11:03:00 13:36:00 XIMENA Medic al Bostic 2021-02-16 2021-02-16 Outpatient E ALVARO, [facility] [id number] [facility] 17:18:00 19:03:00 MELISSA Medica l [facility] 2021-02-04 2021-02-05 Emergency E BACHRISTIANO [facility] [id number] [facility] 22:28:00 01:12:00 Medica l Center 2021-02-03 2021-02-03 Outpatient E XIAOSUSAN [facility] [id number] [facility] 08:09:00 13:01:00 Medica l Bostic 2021-01-26 2021-01-26 Outpatient E BRANDIE [facility] [id number] [facility] 17:18:00 18:57:00 LAURA [facility] 2021-01-24 2021-01-24 Outpatient E CALIXTO, [facility] [id number] [facility] 14:01:00 15:05:00 WASIM [facility] 2020 2020 Outpatient E BRANDIE JAMES [facility] [id number] [facility] 13:06:00 15:35:00 Medica l Bostic 2020-12-02 2020-12-02 Outpatient E ALVARO, [facility] [id number] [facility] 16:26:00 18:20:00 MELISSA Medica l [facility] 2020-11-14 2020-11-14 Outpatient E GONGROAVARGHESE Palacios [facility] [id number] [facility] 18:20:00 21:07:00 Medica l Center 2020-09-08 2020-09-08 Outpatient E TATIANNA, [facility] [id number] [facility] 19:10:00 21:10:00 XIMENA Medic al Bostic 2020-09-03 2020-09-03 Outpatient E ALVARO, [facility] [id number] [facility] 18:20:00 20:27:00 MELISSA Medica l [facility] 2020-08-22 2020-08-22 Outpatient LISTER_MELI MEH[facility] VAHOP 955 [place] 12:32:00 12:32:00 SSA 0511 [facility] 2020-08-09 2020-08-09 Ruben CHANDLER_MELI [place] - 9557 [place] 00:00:00 00:00:00 Omoblisandro [facility] Hendrix 0428 ha Hopper MD: Yazdanism Epi scop [id number] [place] [facility] 59 [facility], [facility] [address], [place], [place] [address] , Ph. 2020-06-03 2020-06-03 Outpatient E BRANDIE [facility] [id number] [facility] 17:55:00 19:35:00 [facility] 2020-03-14 2020-03-14 Outpatient MUKESH_JUANI MEHOP [facility] 955 [place] 03:24:00 03:24:00 SSA 1201 [facility] 2020-03-01 2020-03-01 Outpatient G_Pappas MMG MMG [id number] [place] 02:18:00 02:18:00 1118 da [facility] 2020-02-24 2020-02-24 Outpatient LISTER_JUANI MEHOP [facility] 955 [place] 09:41:00 09:41:00 SSA 1112 [facility] 2020-02-24 2020-02-24 [facility] [id number] 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 2020-01-31 2020-01-31 Outpatient [facility] [id number] [facility] 11:25:00 14:40:00 LAURA Medica [facility] 2020-01-27 2020-01-27 Outpatient LISTER_MELI MEHOP MEHOP 955 [place] 04:39:00 04:39:00 SSA 1015 [facility] 2020-01-13 2020-01-13 Outpatient LISTER_MELI MEHOP MEHOP 955 [place] 11:00:00 11:00:00 SSA 1001 [facility] 2020-01-12 2020-01-12 Cassy Hartman LISTER_MELI [place] - 955 [place] 00:00:00 00:00:00 Samantha [facility] Hendrix 0930 ha SANON: [id number] 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 2019-12-04 2019-12-04 Outpatient Amalia JOHN [facility] [id number] [facility] 15:37:00 19:00:00 MELISSA Medica [facility] 2019-11-23 2019-11-23 Olubukola LISTER_MELI [facility] - 9557 [place] 00:00:00 00:00:00 Omobolahumphrey [facility] Hendrix 0811 ha Hopper MD: Yazdanism Epi scop [address] A, [place] [address] , Ph. 2019-11-16 2019-11-16 Outpatient LISTER_MELI MEHOP MEHOP 955 [place] 04:27:00 04:27:00 SSA 0804 [facility] 2019-11-15 2019-11-15 Olubukola LISTER_MELI [place] - 9557 [place] 00:00:00 00:00:00 Omobolaji [facility] Hendrix 0803 ha Hopper MD: Yazdanism Epi scop [id number] HOP - [address], [place] [address] , Ph. 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 2019-08-17 2019-08-17 Outpatient Amalia DIEGO [facility] [id number] [facility] 09:10:00 10:00:00 SUMMER Medica [facility] 2019-08-17 2019-08-17 Outpatient LISTER_MELI MEHOP MEHOP 955 [place] 06:10:00 06:10:00 SSA 0505 [facility] 2019-08-12 2019-08-12 Yumiko CHANDLER_MELI [place] - [id number] [place] 00:00:00 00:00:00 Leisa SSA Hendrix 0430 da [place]esh, Yazdanism Episco p MAINTENANCE PIPEFITTER: [address] F N, SOLAR [facility]ST[facility] [place] [address] Progr am , Ph. 2019-08-11 2019-08-11 Outpatient BHARATH CARRILLO [facility] 955 [place] 10:09:00 10:09:00 SSA 0429 [facility] 2019-08-10 2019-08-10 Outpatient E DIAZ [facility] [id number] [facility] 12:45:00 14:37:00 SARINA Medica l [facility] 2019-07-01 2019-07-01 Outpatient E BA, CHRISTIANO [facility] [id number] [facility] 05:41:00 07:30:00 Medica l Bostic 2019-06-28 2019-06-28 Outpatient E [facility] [id number] [facility] 07:27:00 10:15:00 WASIM Medica l [facility]ostic 2019-06-23 2019-06-23 Outpatient E TAE, CHRISTIANO [facility] [id number] [facility] 21:29:00 23:55:00 Medica l Bostic 2019-03-12 2019-03-12 Outpatient E SELINA [facility] [id number] [facility] 07:46:00 09:15:00 HASAN Medica l [facility] 2019-03-11 2019-03-11 Outpatient E JAMES DIEGO [facility] [id number] [facility] 06:06:00 09:12:00 Medica l Bostic 2018-07-05 2018-07-05 Outpatient E EMILY [facility] [id number] [facility] 09:08:00 13:47:00 SARINA [facility] 2017-11-19 2017-11-19 Outpatient E JAVIER [facility] [id number] [facility] 13:08:00 14:20:00 CORRINE [facility] 2017-09-23 2017-09-25 Inpatient C ROMEO [facility] [place] [id number] [facility] 13:05:00 18:59:00 NÉSTOR [facility] 2017-09-15 2017-09-15 Outpatient [place] WALTERS [facility] [place] [id number] [facility] 00:17:00 03:40:00 [facility]ST[facility] 2017-08-25 2017-08-26 Outpatient [place] JERONIMO [facility] [place] [id number] [facility] 23:04:00 01:34:00 SEJAL [facility] 2017-08-21 2017-08-21 Outpatient [place] JERONIMO [facility] [place] [id number] [facility] 11:06:00 12:07:00 SEJAL Medica [facility] 2017-08-14 2017-08-14 Outpatient [place]cy JERONIMO [facility] [place] [id number] [facility] 16:44:00 19:02:00 [facility] 2017-05-18 2017-05-18 Emergency E , [facility] [id number] [facility] 06:27:00 09:34:00 WAS [facility] 2017-05-15 2017-05-15 Outpatient G_Pappas [facility] [id number] [place] 10:05:00 10:05:00 [facility] 2017-05-09 2017-05-09 Emergency E TAE, [facility] [id number] [facility] 20:08:00 22:31:00 [facility] 2017-05-07 2017-05-07 Outpatient Quincy JERONIMO, [facility] [id number] [facility] 11:00:00 23:59:00 [facility] 2017-05-06 2017-05-06 Emergency E ALBRIGHT, [facility] [id number] [facility] 13:49:00 15:55:00 [facility] 2016-11-23 2016-11-23 Emergency E CALIXTO, [facility] [id number] [facility] 11:03:00 11:51:00 WAS [facility] 2016-11-21 2016-11-21 Emergency E JAVIER, [facility] [id number] [facility] 11:31:00 12:01:00 [facility] Results Test Description Test Time Test Comments Results Result Comments Source CBC (INCLUDES AUTOMATED DIFFERENTIAL)* 2022-06-13 10:02:00 Test Item Value Reference Range Interpretation Comme nts WBC (test code = WBC) 7.7 10\S\3/uL 4.5-11.0 RBC (test code = RBC) 4.73 10\S\6/uL 4.30-5.70 HGB (test code = HBG) 14.8 g/dL 12.0-15.5 HCT (test code = HCT) 46.4 % 35.0-44.0 H MCV (test code = MCV) 98.1 fL 81.0-99.0 MCH (test code = MCH) 31.3 pg 27.0-31.0 H MCHC (test code = MCHC) 31.9 g/dL 32.0-36.0 L RDW (test code = RDW) 12.3 % 11.5-14.5 PLT (test code = PLT) 349 10\S\3/uL 130-400 MPV (test code = MPV) 8.9 fL 9.4-12.4 L NEUTROP # (test code = NE#) 4.3 10\S\3/uL 1.6-8.0 LYMPH # (test code = LY#) 2.6 10\S\3/uL 1.1-3.5 MONOCYTE # (test code = MO#) 0.5 10\S\3/uL 0.0-1.1 EOSINOPH # (test code = EO#) 0.2 10\S\3/uL 0.0-0.7 BASOPHIL # (test code = BA#) 0.1 10\S\3/uL 0.0-0.3 IG # (test code = IG#) 0.01 10\S\3/uL 0.00-0.06 NRBC # (test code = NRBC#) 0.00 10\S\3/uL 0.00-0.01 NEUTROPH % (test code = NE%) 56.0 % 35.0-73.0 LYMPH % (test code = LY%) 34.1 % 20.0-55.0 MONO % (test code = MO%) 5.9 % 2.5-10.0 EOSINOPH % (test code = EO%) 2.9 % 0.0-5.0 BASOPHIL % (test code = BA%) 1.0 % 0.0-2.0 IG % (test code = IG%) 0.1 % 0.0-0.8 NRBC% (test code = NRBC%) 0.0 % 0.0-0.2 MANDIFF (test code = WMDIFF) NO NO RBC MORPH (test code = WRBCMOR) NORMAL SERUM MONOCLONAL *WW*2022-06-13 09:52:00 Test Item Value Reference Range Interpretation Comments PREG SRM (test code = PGS) NEGATIVE NEGATIVE BASIC METABOLIC PANEL 2022-06-13 09:50:00 Test Item Value Reference Range Interpretation Comments GLUCOSE (test code = 91 mg/dL 75-100 06D) SODIUM (test code = 139 mmol/L 136-145 01A) POTASSIUM (test code = 3.4 mmol/L 3.6-5.1 L 01B) CHLORIDE (test code = 107 mmol/L 98-107 04A) CO2 (test code = 02A) 25 mmol/L 20-31 ANION GAP (test code = 10.4 mmol/L ANG) BUN (test code = 05D) 14 mg/dL 9-23 CREATININE (test code 0.9 mg/dL 0.6-1.0 = 03E) GFR (test code = GFR) 80 mL/min/1.73m\S\2 >=90 L GFR 93 mL/min/1.73m\S\2 >=90 (test code = GFRAA) EGFR (test code = eGFR BY CKD-EPI EGFR) CALCULATION IS NOT RECOMMENDED FOR PATIENTS UNDER 18 YEARS OF AGE. BUN/CREA (test code = 16 12-20 BCR) CALCIUM (test code = 9.1 mg/dL 8.3-10.6 09D) CT ABDOMEN AND PELVIS WITHOUT CONTRAST 2021-12-02 14:44:39 [facility] : 1980 Sex: FEXAM: CT ABDOMEN PELVIS WITHOUT IV CONTRASTLOCATION: [id number]: Abdominal painTECHNIQUE: Serial axial CT images were obtained from above the diaphragm to the proximal femurs without the administration of intravenouscontrast. Oral contrast was not administeredPhase(s): Non-contrastReformats: Standard coronal and sagittal reformats provided.The exam was performed according to our departmental dose- optimization program, which includes automated exposure control, adjustment of the mA and/or kV according to patient size and/or use of iterative reconstruction technique.COMPARISON: CT abdomen pelvis 01/31/2020, 07/01/19 20FINDINGS:STATEMENTS: Limited evaluation of solid organs and vasculature without the use of intravenous contrast.LUNG BASES: Unremarkable.LIVER: Normal attenuation and contour. No focal lesions.BILIARY: Status post cholecystectomy. No intrahepatic or extrahepatic biliary ductal dilation.PANCREAS: Unre markable.SPLEEN: Unremarkable.ADRENALS: Unremarkable.KIDNEYS: The kidneys appear normal in size. No hydronephrosis. 2 mm nonobstructing kidney stone seen in the left mid collecting system.GENITOURINARY: The ureters are nondilated throughout. The bladder is incompletely distended and poorly assessed with no gross abnormalities. The uterus appears normal. No adnexal masses.GASTROINTESTINAL: The distal esophagus is unremarkable. The stomach is nondistended and poorly assessed. The small and large bowelloops demonstrate no signs of obstruction or focal inflammation. No diverticulosis. The appendix is not visualized.VASCULAR: The abdominal aorta is nonaneurysmal. No significant atherosclerosis.LYMPH NO FLOR: No enlarged lymph nodes.MESENTERY: Grossly unremarkable with no free air or loculated fluid collections.SOFT TISSUES: Partially visualized 4.9 x 4.1 cm slightly complex cystic lesion noted within the left posterior musculature of the lower extremity, suspect semitendinosis.BONES: No acute osseous findings.IMPRESSION:1. No acute intra-abdominal process identified. 2 mm left- sided nonobstructing kidney stone.2. Partially visualized 4.9 cm slightly complex cystic lesion within the left posterior muscle of the lower extremity, suspect semitendinosis.Electronically signed by: Horacio Nazario DO 12/02/2021 2:44 PM CDT [id number] WITH MICRO *WW*2021-12-02 14:22:00 Test Item Value Reference Range Interpretation Comments COLOR (test code = COLU) YELLOW YELLOW CLARITY (test code = CLA) SLT HAZY CLEAR A GLUCOSE UR (test code = UA GLUCOSE) 3+ NEGATIVE A BILI UR (test code = BILE) NEGATIVE NEGATIVE KETONES UR (test code = LEIDY) TRACE NEGATIVE A SP GRAVITY (test code = SPGR) >=1.030 1.005-1.030 PH UR (test code = PH) 6.0 4.5-8.0 PROTEIN UR (test code = PU) TRACE NEGATIVE A UROBIL UR (test code = UROQ) 0.2 EU/dL 0.2-1.0 NITRITE UR (test code = NITRITE) NEGATIVE NEGATIVE BLOOD UR (test code = UA BLOOD) NEGATIVE NEGATIVE LEUK ES UR (test code = LEUK) TRACE NEGATIVE A WBC UR (test code = UWBC) 5 /HPF 0-5 RBC UR (test code = URBC) 2 /HPF 0-2 EPITH UR (test code = UEPC) FEW /LPF FEW BACTERIA UR (test code = UBACT) FEW /HPF NONE A CAST UR (test code = CAST) /LPF NONE CRYSTAL UR (test code = CRYU) / LPF NONE MUCUS UR (test code = MUC) FEW / HPF NONE A AMORPH UR (test code = LUCAS) / HPF NONE TRICH UR (test code = UTRICH) /HPF NONE YEAST UR (test code = UY) FEW /HPF NONE A SPERM UR (test code = USPERM) /HPF NONE URINE MONOCLONAL *[facility]2021-12-02 14:16:00 Test Item Value Reference Range Interpretation Comments PREG UR (test code = PGU) NEGATIVE NEGATIVE PRO TIME AND PTT *[facility]2021-12-02 14:10:00 Test Item Value Reference Range Interpretation Comments PT (test code = 12.3 s 9.8-13.6 TT) INR (test code = 1.1 INR) INRH (test code = SUGGESTED THERAPEUTIC INRH) RANGE FOR INR: 2.5 - 3.5 For Patients with Prosthetic Valves or Patients with recurrent Thromboembolic Events 2.0 - 3.0 For Most Other Applications PTT (test code = 24.3 s 20.2-38.0 PTT) PTTH (test code = To monitor the PTTH) effectiveness of heparin, we offer the Anti-Xa (Heparin Assay). It can be used for either unfractionated or LMW Heparin. Order Code is ANTI-XA CBC WITH MORPHOLOGY 2021-12-02 13:45:00 Test Item Value Reference Range Interpretation Comments WBC (test code = WBC) 8.7 10\S\3/uL 4.5-11.0 RBC (test code = RBC) 4.67 10\S\6/uL 4.30-5.70 HGB (test code = HBG) 14.6 g/dL 12.0-15.5 HCT (test code = HCT) 44.0 % 35.0-44.0 MCV (test code = MCV) 94.2 fL 81.0-99.0 MCH (test code = MCH) 31.3 pg 27.0-31.0 H MCHC (test code = MCHC) 33.2 g/dL 32.0-36.0 RDW (test code = RDW) 12.9 % 11.5-14.5 PLT (test code = PLT) 382 10\S\3/uL 130-400 MPV (test code = MPV) 9.3 fL 9.4-12.4 L NEUTROP # (test code = NE#) 5.1 10\S\3/uL 1.6-8.0 LYMPH # (test code = LY#) 2.8 10\S\3/uL 1.1-3.5 MONOCYTE # (test code = 0.6 10\S\3/uL 0.0-1.1 MO#) EOSINOPH # (test code = 0.2 10\S\3/uL 0.0-0.7 EO#) BASOPHIL # (test code = 0.1 10\S\3/uL 0.0-0.3 BA#) IG # (test code = IG#) 0.02 10\S\3/uL 0.00-0.06 NRBC # (test code = NRBC#) 0.00 10\S\3/uL 0.00-0.01 NEUTROPH % (test code = 58.9 % 35.0-73.0 NE%) LYMPH % (test code = LY%) 31.9 % 20.0-55.0 MONO % (test code = MO%) 6.4 % 2.5-10.0 EOSINOPH % (test code = 1.8 % 0.0-5.0 EO%) BASOPHIL % (test code = 0.8 % 0.0-2.0 BA%) IG % (test code = IG%) 0.2 % 0.0-0.8 NRBC% (test code = NRBC%) 0.0 % 0.0-0.2 PLT EST (test code = ADEQUATE ADEQUATE PLTEST) PLT MORPH (test code = NORMAL (1.5-3 um) NORMAL PLTMOR) SARS-CoV (RAPID ANTIGEN) WW2021-12-02 13:42:00 Test Item Value Reference Range Interpretation Comments SARS-CoV (ANTIGEN) NEGATIVE NEGATIVE (test code = COVAG) COVID AG (test This test has been code = COVAGC) marketed under the FDA Emergency Use Authorization (EUA) to meet challenges of the COVID-19 pandemic. The validation standards normally enforced by the FDA and the [employer] the [employer] (CAP) are more stringent than those required for this test. Therefore, the result should be interpreted with caution and close attention to other clinical and epidemiological data THYROID PANEL/SCREEN (TSH) *WW*2021-12-02 13:34:00 Test Item Value Reference Range Interpretation Comments TSH (test code = WTSH) 1.496 uIU/mL 0.358-3.740 COMPREHENSIVE METABOLIC MONTANO 2021-12-02 13:28:00 Test Item Value Reference Range Interpretation Comments GLUCOSE (test code 98 mg/dL 75-100 = 06D) SODIUM (test code 142 mmol/L 136-145 = 01A) POTASSIUM (test 3.3 mmol/L 3.6-5.1 L code = 01B) CHLORIDE (test 109 mmol/L 98-107 H code = 04A) CO2 (test code = 20 mmol/L 20-31 02A) ANION GAP (test 16.3 mmol/L code = ANG) BUN (test code = 9 mg/dL 9-23 05D) CREATININE (test 0.7 mg/dL 0.6-1.0 code = 03E) GFR (test code = 108 See_Comment [Automated GFR) mL/min/1.73m\S\2 message] Th e system which generated this result transmit kimber reference range : >=90. The reference range was not used to interpret this result as normal/abnormal . GFR 126 See_Comment [Automated [employer] (test mL/min/1.73m\S\2 message] The code = GFRAA) system which generated this result transmit kimber reference range : >=90. The reference range was not used to interpret this result as normal/abnormal . EGFR (test code = eGFR BY EGFR) CKD-EPI CALCULATION IS NOT RECOMMENDED FOR PATIENTS UNDER 18 YEARS OF AGE. BUN/CREA (test 13 12-20 code = BCR) CALCIUM (test code 9.0 mg/dL 8.3-10.6 = 09D) BILI TOTAL (test 0.3 mg/dL 0.2-1.0 code = 11A) PROTEIN (test code 7.4 g/dL 5.7-8.2 = 07D) ALBUMIN (test code 4.5 g/dL 3.2-4.8 = 08D) GLOBULIN (test 2.9 g/dL 1.5-3.8 code = GLB) ALB/GLOB (test 1.6 1.0-2.6 code = AGRR) ALK PHOS (test 64 IU/L 46-116 code = 35A) AST (test code = 25 IU/L See_Comment [Automated 30A) message] The system which generated this result transmit kimber reference range : <=33. The reference range was not used to interpret this result as normal/abnormal . ALT (test code = 23 IU/L 10-49 31A) MAGNESIUM WW2021-12-02 13:28:00 Test Item Value Reference Range Interpretation Comments MAGNESIUM (test code = 48A) 2.0 mg/dL 1.6-2.6 [employer] 8 Panel *OW* [id number] 08:23:00 Test Item Value Reference Range Interpretation Comments GLUCOSE (test code = GGUL) 91 mg/dL 73-118 BUN (test code = GBUN) 12 mg/dL 7-22 CREATININE (test code = GCRE) 0.9 mg/dL 0.6-1.2 CK TOTAL (test code = GCK) 79 U/L 30-190 SODIUM (test code = GNA+) 143 mmol/L 128-145 POTASSIUM (test code = GK+) 3.8 mmol/L 3.6-5.1 CHLORIDE (test code = GCL-) 112 mmol/L 98-108 H TCO2 (test code = GTC02) 20 mmol/L 18-33 GENERAL CHEMISTRY 13 *OW* [id number] 08:09:00 Test Item Value Reference Range Interpretation Comments GLUCOSE (test code = GGUL) 90 mg/dL 73-118 BUN (test code = GBUN) 13 mg/dL 7-22 CREATININE (test code = GCRE) 0.5 mg/dL 0.6-1.2 L URIC ACID (test code = GUA) 5.2 mg/dL 2.2-6.6 CALCIUM (test code = GCL+) 8.8 mg/dL 8.0-10.3 ALBUMIN (test code = GALB) 3.5 g/dL 3.5-5.5 PROTEIN (test code = GTP) 7.0 g/dL 6.4-8.1 ALT (test code = GALT) 16 U/L 10-47 AST (test code = DAYTON) 25 U/L 11-38 ALK PHOS (test code = GALP) 57 U/L 42-141 BILI TOTAL (test code = GTBIL) 0.3 mg/dL 0.2-1.6 GGT (test code = GGGT) 49 U/L 5-65 AMYLASE (test code = GAMY) 32 U/L 14-97 METLAC 12 PANEL *OW* [id number] 08:09:00 Test Item Value Reference Range Interpretation Comments ALBUMIN (test code = GALB) 3.5 g/dL 3.5-5.5 GLUCOSE (test code = GGUL) 90 mg/dL 73-118 CREATININE (test code = GCRE) 0.5 mg/dL 0.6-1.2 L BUN (test code = GBUN) 13 mg/dL 7-22 CALCIUM (test code = GCL+) 8.8 mg/dL 8.0-10.3 SODIUM (test code = GNA+) 143 mmol/L 128-145 POTASSIUM (test code = GK+) 4.3 mmol/L 3.6-5.1 CHLORIDE (test code = GCL-) 112 mmol/L 98-108 H TCO2 (test code = GTC02) 22 mmol/L 18-33 MAGNESIUM (test code = GMG+) 2.2 mg/dL 1.6-2.3 LACTATE (test code = DEDE) 2.15 mmol/L 0.53-2.10 H PHOSPHORUS (test code = OPHOS) 2.8 mg/dL 2.2-4.1 URINE OW2021-05-12 08:05:00 Test Item Value Reference Range Interpretation Comments PREG UR (test code = PGU) Negative NEGATIVE CBC (INCLUDES AUTOMATED DIFFERENTIAL) *2021-05-12 08:00:00 Test Item Value Reference Range Interpretation Comments WBC (test code = WBC) 12.8 10\S\3/uL 4.5-11.0 H RBC (test code = RBC) 4.58 10\S\6/uL 4.30-5.70 HGB (test code = HBG) 14.3 g/dL 12.0-15.5 HCT (test code = HCT) 44.0 % 35.0-44.0 MCV (test code = MCV) 96.1 fL 81.0-99.0 MCH (test code = MCH) 31.2 pg 27.0-31.0 H MCHC (test code = MCHC) 32.5 g/dL 32.0-36.0 RDW (test code = RDW) 12.6 % 11.5-14.5 PLT (test code = PLT) 375 10\S\3/uL 130-400 MPV (test code = OMPV) 7.0 fL 6.2-10.2 NEUTROP # (test code = NE#) 7.8 10\S\3/uL 1.6-8.0 LYMPH # (test code = LY#) 4.1 10\S\3/uL 1.1-3.5 H MID # (test code = GMID#) 1.0 10\S\3/uL 0.0-1.1 GRAN % (test code = GRA%) 60.6 % 35.0-73.0 LYMPH % (test code = GLY%) 31.9 % 20.0-55.0 MID % (test code = GMID%) 7.5 % 0.0-10.0 URINALYSIS W/O MICROSCOPICOW2021-05-12 08:00:00 Test Item Value Reference Range Interpretation Comments COLOR (test code = Yellow YELLOW COLU) CLARITY (test code = Clear CLEAR CLA) GLUCOSE UR (test Negative NEGATIVE code = UA GLUCOSE) BILI UR (test code = Negative NEGATIVE BILE) KETONES UR (test Negative NEGATIVE code = LEIDY) SP GRAVITY (test >=1.030 1.005-1.030 code = SPGR) PH UR (test code = 6.0 4.5-8.0 PH) PROTEIN UR (test Negative NEGATIVE code = PU) NITRITE UR (test Negative NEGATIVE code = NITRITE) UROBIL UR (test code 0.2 E.U./dL = GUROQ) UROBIL UR (test code UROBILINOGEN = GUROQC) REFERENCE RANGE 0.2 - 1.0 EU/dL BLOOD UR (test code Trace-lysed NEGATIVE = UA BLOOD) LEUK ES UR (test Trace NEGATIVE code = LEUK) COMPREHENSIVE METABOLIC MONTANO *WW*2021-02-04 23:24:00 Test Item Value Reference Range Interpretation Comments GLUCOSE (test code 96 mg/dL 75-100 = 06D) SODIUM (test code 140 mmol/L 136-145 = 01A) POTASSIUM (test 3.6 mmol/L 3.6-5.1 code = 01B) CHLORIDE (test 108 mmol/L 98-107 H code = 04A) CO2 (test code = 24 mmol/L 20-31 02A) ANION GAP (test 11.6 mmol/L code = ANG) BUN (test code = 14 mg/dL 9- 05D) CREATININE (test 0.8 mg/dL 0.6-1.0 code = 03E) GFR (test code = 93 See_Comment [Automated GFR) mL/min/1.73m\S\2 message] Th e system which generated this result transmit kimber reference range : >=90. The reference range was not used to interpret this result as normal/abnormal . GFR 108 See_Comment [Automated [employer] A[employer] (test mL/min/1.73m\S\2 message] The code = GFRAA) system which generated this result transmit kimber reference range : >=90. The reference range was not used to interpret this result as normal/abnormal . EGFR (test code = eGFR BY EGFR) CKD-EPI CALCULATION IS NOT RECOMMENDED FOR PATIENTS UNDER 18 YEARS OF AGE. BUN/CREA (test 18 -20 code = BCR) CALCIUM (test code 8.8 mg/dL 8.3-10.6 = 09D) BILI TOTAL (test <0.2 mg/dL 0.2-1.0 code = 11A) PROTEIN (test code 6.9 g/dL 5.7-8.2 = 07D) ALBUMIN (test code 4.2 g/dL 3.2-4.8 = 08D) GLOBULIN (test 2.7 g/dL 1.5-3.8 code = GLB) ALB/GLOB (test 1.5 1.0-2.6 code = AGRR) ALK PHOS (test 67 IU/L 46-116 code = 35A) AST (test code = 18 IU/L See_Comment [Automated 30A) message] The system which generated this result transmit kimber reference range : <=33. The reference range was not used to interpret this result as normal/abnormal . ALT (test code = 23 IU/L 10-49 31A) CBC (INCLUDES AUTOMATED DIFFERENTIAL)*[id number] 23:12:00 Test Item Value Reference Range Interpretation Comments WBC (test code = WBC) 9.5 10\S\3/uL 4.5-11.0 RBC (test code = RBC) 4.35 10\S\6/uL 4.30-5.70 HGB (test code = HBG) 13.1 g/dL 12.0-15.5 HCT (test code = HCT) 41.0 % 35.0-44.0 MCV (test code = MCV) 94.3 fL 81.0-99.0 MCH (test code = MCH) 30.1 pg 27.0-31.0 MCHC (test code = MCHC) 32.0 g/dL 32.0-36.0 RDW (test code = RDW) 13.1 % 11.5-14.5 PLT (test code = PLT) 347 10\S\3/uL 130-400 MPV (test code = MPV) 8.9 fL 9.4-12.4 L NEUTROP # (test code = NE#) 4.3 10\S\3/uL 1.6-8.0 LYMPH # (test code = LY#) 4.3 10\S\3/uL 1.1-3.5 H MONOCYTE # (test code = MO#) 0.6 10\S\3/uL 0.0-1.1 EOSINOPH # (test code = EO#) 0.2 10\S\3/uL 0.0-0.7 BASOPHIL # (test code = BA#) 0.1 10\S\3/uL 0.0-0.3 IG # (test code = IG#) 0.03 10\S\3/uL 0.00-0.06 NRBC # (test code = NRBC#) 0.00 10\S\3/uL 0.00-0.01 NEUTROPH % (test code = NE%) 45.6 % 35.0-73.0 LYMPH % (test code = LY%) 44.7 % 20.0-55.0 MONO % (test code = MO%) 6.3 % 2.5-10.0 EOSINOPH % (test code = EO%) 2.3 % 0.0-5.0 BASOPHIL % (test code = BA%) 0.8 % 0.0-2.0 IG % (test code = IG%) 0.3 % 0.0-0.8 NRBC% (test code = NRBC%) 0.0 % 0.0-0.2 MANDIFF (test code = WMDIFF) NO NO RBC MORPH (test code = NORMAL WRBCMOR) CT HEAD W/O CONTRAST *OW*2021-02-03 11:43:54 [facility] 1980 Sex: FLocation code: B 2HISTORY: Headache.COMMENT:Axial imaging of the patient's brain was obtained without IV contrast. Soft tissue and bone window images were provided.Comparison 08/17/2019Dose lowering technique with automatic exposure control utilized.There is no evidence for acute mass effect, midline shift, hemorrhage, or herniation. The ventricles, sulci, and cisterns within normal limits. No intra or extra- axial fluid collections.The bone-windowing examination demonstrates no focal bony abnormalities. No abnormalitywithin the sinuses.IMPRESSION: Unremarkable head CT examination without IV contrast. Electronically signed by: Nahun Pagan MD 02/03/2021 11:43 AM CDT EHIDM TRIAGE OW2021-02-03 09:18:00 Test Item Value Reference Range Interpretation Comments D-DIMER (test code <100 ng/mL D-DU See_Comment [Auto mated message] = GDDI) The system [employer] generated this result transmitted ref erence range: <=599. T he reference range was not used to int erpret this result as normal/abnormal . D-DIMER COMMENT *Level to rule (test code = out DVT or PE: DDCOM) <235 ng/mL D-DU* TROPONIN I OW2021-02-03 09:08:00 Test Item Value Reference Range Interpretation Comments TROPONIN I (test code = A84) <0.05 pg/mL 0.00-0.05 BRAIN NATRIURETIC PEPTIDE OW2021-02-03 08:56:00 Test Item Value Reference Range Interpretation Comments BNP (test code = <5 pg/mL See_Comment [Automated message] The OBNP) system which ge nerated this result tra nsmitted reference range : <=100. The reference r vinayak was not used to int erpret this result as carlos alberto l/abnormal. URINE OW2021-02-03 08:51:00 Test Item Value Reference Range Interpretation Comments PREG UR (test code = PGU) Negative NEGATIVE DRUGS OF ABUSE*OW*2021-02-03 08:50:00 Test Item Value Reference Range Interpretation Comments DRUG SCRN (test code URINE DRUG SCREEN = HDOA) This is an unconfirmed screening result and should not be used for non-medical purposes PHENCYCLID (test Negative NEGATIVE code = GPCP) BENZODIAZE (test Positive NEGATIVE A code = GBZO) COCAINE (test code = Negative NEGATIVE GCOC) AMPHETAMIN (test Negative NEGATIVE code = GAMP) THC (test code = Negative NEGATIVE GTHC) OPIATES (test code = Negative NEGATIVE CANDELARIA) BARBITURAT (test Negative NEGATIVE code = GBAR) TCA (test code = Positive NEGATIVE A GTCA) DOAH (test code = URINE DRUG DOAH) SCREEN CUT OFF VALUES Amphetamines 1000 ng/mL Barbituates 300 ng/mL Benzodiazepines 300 ng/mL Cocaine 300 ng/mL Opiates 300 ng/mL Phencyclidine 25 ng/mL THC 50 ng/mL Tricyclic Antidepressants 1000 ng/mL SARS-CoV (RAPID ANTIGEN) WH2021-02-03 08:47:00 Test Item Value Reference Range Interpretation Comments SARS-CoV (ANTIGEN) NEGATIVE NEGATIVE (test code = COVAG) COVID AG (test This test has been code = COVAGC) marketed under the FDA Emergency Use Authorization (EUA) to meet challenges of the COVID-19 pandemic. The validation standards normally enforced by the FDA and the [employer] the [employer] (CAP) are more stringent than those required for this test. Therefore, the result should be interpreted with caution and close attention to other clinical and epidemiological data GENERAL CHEMISTRY 13 *OW* [id number] 08:47:00 Test Item Value Reference Range Interpretation Comments GLUCOSE (test code = GGUL) 134 mg/dL 73-118 H BUN (test code = GBUN) 13 mg/dL 7-22 CREATININE (test code = GCRE) 0.7 mg/dL 0.6-1.2 URIC ACID (test code = GUA) 4.7 mg/dL 2.2-6.6 CALCIUM (test code = GCL+) 9.3 mg/dL 8.0-10.3 ALBUMIN (test code = GALB) 4.2 g/dL 3.5-5.5 PROTEIN (test code = GTP) 7.6 g/dL 6.4-8.1 ALT (test code = GALT) 24 U/L 10-47 AST (test code = DAYTON) 32 U/L 11-38 ALK PHOS (test code = GALP) 62 U/L 42-141 BILI TOTAL (test code = GTBIL) 0.5 mg/dL 0.2-1.6 GGT (test code = GGGT) 64 U/L 5-65 AMYLASE (test code = GAMY) 32 U/L 14-97 METLAC 12 PANEL *OW* [id number] 08:47:00 Test Item Value Reference Range Interpretation Comments ALBUMIN (test code = GALB) 4.0 g/dL 3.5-5.5 GLUCOSE (test code = GGUL) 136 mg/dL 73-118 H CREATININE (test code = GCRE) 0.7 mg/dL 0.6-1.2 BUN (test code = GBUN) 13 mg/dL 7-22 CALCIUM (test code = GCL+) 9.7 mg/dL 8.0-10.3 SODIUM (test code = GNA+) 140 mmol/L 128-145 POTASSIUM (test code = GK+) 4.3 mmol/L 3.6-5.1 CHLORIDE (test code = GCL-) 99 mmol/L 98-108 TCO2 (test code = GTC02) 25 mmol/L 18-33 MAGNESIUM (test code = GMG+) 2.0 mg/dL 1.6-2.3 LACTATE (test code = DEDE) 3.60 mmol/L 0.53-2.10 H PHOSPHORUS (test code = OPHOS) 2.7 mg/dL 2.2-4.1 INFLUENZA A AND B OW2021-02-03 08:46:00 Test Item Value Reference Range Interpretation Comments INFLUENZ A (test code = INFA) NEGATIVE NEGATIVE INFLUENZ B (test code = INFB) NEGATIVE NEGATIVE DIRECT STREP GROUP AOW2021-02-03 08:46:00 Test Item Value Reference Range Interpretation Comments Strep A Ag (test code = STREP) NEGATIVE NEGATIVE URINALYSIS W/O MICROSCOPICOW2021-02-03 08:45:00 Test Item Value Reference Range Interpretation Comments COLOR (test code = DK YELLOW YELLOW A COLU) CLARITY (test code = SLT HAZY CLEAR A CLA) GLUCOSE UR (test Negative NEGATIVE code = UA GLUCOSE) BILI UR (test code = 1+ NEGATIVE A BILE) KETONES UR (test 1+ NEGATIVE A code = LEIDY) SP GRAVITY (test >=1.030 1.005-1.030 code = SPGR) PH UR (test code = 5.5 4.5-8.0 PH) PROTEIN UR (test 1+ NEGATIVE A code = PU) NITRITE UR (test Negative NEGATIVE code = NITRITE) UROBIL UR (test code 0.2 E.U./dL = GUROQ) UROBIL UR (test code UROBILINOGEN = GUROQC) REFERENCE RANGE 0.2 - 1.0 EU/dL BLOOD UR (test code Negative NEGATIVE = UA BLOOD) LEUK ES UR (test Negative NEGATIVE code = LEUK) CBC (INCLUDES AUTOMATED DIFFERENTIAL) *2021-02-03 08:45:00 Test Item Value Reference Range Interpretation Comments WBC (test code = WBC) 9.2 10\S\3/uL 4.5-11.0 RBC (test code = RBC) 4.91 10\S\6/uL 4.30-5.70 HGB (test code = HBG) 14.5 g/dL 12.0-15.5 HCT (test code = HCT) 46.6 % 35.0-44.0 H MCV (test code = MCV) 94.9 fL 81.0-99.0 MCH (test code = MCH) 29.5 pg 27.0-31.0 MCHC (test code = MCHC) 31.1 g/dL 32.0-36.0 L RDW (test code = RDW) 12.9 % 11.5-14.5 PLT (test code = PLT) 437 10\S\3/uL 130-400 H MPV (test code = OMPV) 7.1 fL 6.2-10.2 NEUTROP # (test code = NE#) 5.5 10\S\3/uL 1.6-8.0 LYMPH # (test code = LY#) 3.1 10\S\3/uL 1.1-3.5 MID # (test code = GMID#) 0.7 10\S\3/uL 0.0-1.1 GRAN % (test code = GRA%) 59.3 % 35.0-73.0 LYMPH % (test code = GLY%) 33.6 % 20.0-55.0 MID % (test code = GMID%) 7.1 % 0.0-10.0 [employer] 8 Panel *OW* [id number] 18:08:00 Test Item Value Reference Range Interpretation Comments GLUCOSE (test code = GGUL) 117 mg/dL 73-118 BUN (test code = GBUN) 12 mg/dL 7-22 CREATININE (test code = GCRE) 0.9 mg/dL 0.6-1.2 CK TOTAL (test code = GCK) 128 U/L 30-190 SODIUM (test code = GNA+) 139 mmol/L 128-145 POTASSIUM (test code = GK+) 4.0 mmol/L 3.6-5.1 CHLORIDE (test code = GCL-) 110 mmol/L 98-108 H TCO2 (test code = GTC02) 26 mmol/L 18-33 CBC (INCLUDES AUTOMATED DIFFERENTIAL) *2021-01-26 17:58:00 Test Item Value Reference Range Interpretation Comments WBC (test code = WBC) 8.4 10\S\3/uL 4.5-11.0 RBC (test code = RBC) 4.91 10\S\6/uL 4.30-5.70 HGB (test code = HBG) 14.6 g/dL 12.0-15.5 HCT (test code = HCT) 46.5 % 35.0-44.0 H MCV (test code = MCV) 94.7 fL 81.0-99.0 MCH (test code = MCH) 29.7 pg 27.0-31.0 MCHC (test code = MCHC) 31.4 g/dL 32.0-36.0 L RDW (test code = RDW) 13.7 % 11.5-14.5 PLT (test code = PLT) 435 10\S\3/uL 130-400 H MPV (test code = OMPV) 7.2 fL 6.2-10.2 NEUTROP # (test code = NE#) 4.2 10\S\3/uL 1.6-8.0 LYMPH # (test code = LY#) 3.2 10\S\3/uL 1.1-3.5 MID # (test code = GMID#) 1.0 10\S\3/uL 0.0-1.1 GRAN % (test code = GRA%) 50.3 % 35.0-73.0 LYMPH % (test code = GLY%) 38.2 % 20.0-55.0 MID % (test code = GMID%) 11.5 % 0.0-10.0 H MetyLyte 8 Panel *OW* [id number] 14:30:00 Test Item Value Reference Range Interpretation Comments GLUCOSE (test code = GGUL) 96 mg/dL 73-118 BUN (test code = GBUN) 12 mg/dL 7-22 CREATININE (test code = GCRE) 0.5 mg/dL 0.6-1.2 L CK TOTAL (test code = GCK) 97 U/L 30-190 SODIUM (test code = GNA+) 137 mmol/L 128-145 POTASSIUM (test code = GK+) 3.7 mmol/L 3.6-5.1 CHLORIDE (test code = GCL-) 111 mmol/L 98-108 H TCO2 (test code = GTC02) 23 mmol/L 18-33 CBC (INCLUDES AUTOMATED DIFFERENTIAL) *2020 14:22:00 Test Item Value Reference Range Interpretation Comments WBC (test code = WBC) 7.6 10\S\3/uL 4.5-11.0 RBC (test code = RBC) 4.60 10\S\6/uL 4.30-5.70 HGB (test code = HBG) 13.9 g/dL 12.0-15.5 HCT (test code = HCT) 43.5 % 35.0-44.0 MCV (test code = MCV) 94.5 fL 81.0-99.0 MCH (test code = MCH) 30.2 pg 27.0-31.0 MCHC (test code = MCHC) 32.0 g/dL 32.0-36.0 RDW (test code = RDW) 12.9 % 11.5-14.5 PLT (test code = PLT) 344 10\S\3/uL 130-400 MPV (test code = OMPV) 7.0 fL 6.2-10.2 NEUTROP # (test code = NE#) 5.4 10\S\3/uL 1.6-8.0 LYMPH # (test code = LY#) 1.7 10\S\3/uL 1.1-3.5 MID # (test code = GMID#) 0.6 10\S\3/uL 0.0-1.1 GRAN % (test code = GRA%) 70.7 % 35.0-73.0 LYMPH % (test code = GLY%) 21.8 % 20.0-55.0 MID % (test code = GMID%) 7.5 % 0.0-10.0 URINE OW2020-09-08 20:40:00 Test Item Value Reference Range Interpretation Comments PREG UR (test code = PGU) Negative NEGATIVE URINALYSIS W/O MICROSCOPICOW2020-09-08 20:35:00 Test Item Value Reference Range Interpretation Comments COLOR (test code = Yellow YELLOW COLU) CLARITY (test code = Clear CLEAR CLA) GLUCOSE UR (test Negative NEGATIVE code = UA GLUCOSE) BILI UR (test code = Negative NEGATIVE BILE) KETONES UR (test Negative NEGATIVE code = LEIDY) SP GRAVITY (test >=1.030 1.005-1.030 code = SPGR) PH UR (test code = 6.0 4.5-8.0 PH) PROTEIN UR (test 1+ NEGATIVE A code = PU) NITRITE UR (test Negative NEGATIVE code = NITRITE) UROBIL UR (test code 0.2 E.U./dL = GUROQ) UROBIL UR (test code UROBILINOGEN = GUROQC) REFERENCE RANGE 0.2 - 1.0 EU/dL BLOOD UR (test code Negative NEGATIVE = UA BLOOD) LEUK ES UR (test Negative NEGATIVE code = LEUK) TROPONIN I OW2020-09-08 20:19:00 Test Item Value Reference Range Interpretation Comments TROPONIN I (test code = A84) <0.050 ng/mL 0.000-0.050 GENERAL CHEMISTRY 13 *OW* [id number] 20:08:00 Test Item Value Reference Range Interpretation Comments GLUCOSE (test code = GGUL) 94 mg/dL 73-118 BUN (test code = GBUN) 15 mg/dL 7-22 CREATININE (test code = GCRE) 0.7 mg/dL 0.6-1.2 URIC ACID (test code = GUA) 2.3 mg/dL 2.2-6.6 CALCIUM (test code = GCL+) 9.8 mg/dL 8.0-10.3 ALBUMIN (test code = GALB) 4.2 g/dL 3.5-5.5 PROTEIN (test code = GTP) 7.8 g/dL 6.4-8.1 ALT (test code = GALT) 17 U/L 10-47 AST (test code = DAYTON) 28 U/L 11-38 ALK PHOS (test code = GALP) 67 U/L 42-141 BILI TOTAL (test code = GTBIL) 0.4 mg/dL 0.2-1.6 GGT (test code = GGGT) 68 U/L 5-65 H AMYLASE (test code = GAMY) 35 U/L 14-97 METLAC 12 PANEL *OW* [id number] 20:08:00 Test Item Value Reference Range Interpretation Comments ALBUMIN (test code = GALB) 4.2 g/dL 3.5-5.5 GLUCOSE (test code = GGUL) 94 mg/dL 73-118 CREATININE (test code = GCRE) 0.7 mg/dL 0.6-1.2 BUN (test code = GBUN) 15 mg/dL 7-22 CALCIUM (test code = GCL+) 9.8 mg/dL 8.0-10.3 SODIUM (test code = GNA+) 139 mmol/L 128-145 POTASSIUM (test code = GK+) 4.5 mmol/L 3.6-5.1 CHLORIDE (test code = GCL-) 108 mmol/L 98-108 TCO2 (test code = GTC02) 21 mmol/L 18-33 MAGNESIUM (test code = GMG+) 2.1 mg/dL 1.6-2.3 LACTATE (test code = DEDE) 2.31 mmol/L 0.53-2.10 H PHOSPHORUS (test code = OPHOS) 3.5 mg/dL 2.2-4.1 CBC (INCLUDES AUTOMATED DIFFERENTIAL) *2020-09-08 19:55:00 Test Item Value Reference Range Interpretation Comments WBC (test code = WBC) 8.0 10\S\3/uL 4.5-11.0 RBC (test code = RBC) 5.22 10\S\6/uL 4.30-5.70 HGB (test code = HBG) 15.7 g/dL 12.0-15.5 H HCT (test code = HCT) 49.4 % 35.0-44.0 H MCV (test code = MCV) 94.7 fL 81.0-99.0 MCH (test code = MCH) 30.1 pg 27.0-31.0 MCHC (test code = MCHC) 31.8 g/dL 32.0-36.0 L RDW (test code = RDW) 12.8 % 11.5-14.5 PLT (test code = PLT) 406 10\S\3/uL 130-400 H MPV (test code = OMPV) 7.4 fL 6.2-10.2 NEUTROP # (test code = NE#) 3.5 10\S\3/uL 1.6-8.0 LYMPH # (test code = LY#) 3.8 10\S\3/uL 1.1-3.5 H MID # (test code = GMID#) 0.8 10\S\3/uL 0.0-1.1 GRAN % (test code = GRA%) 43.7 % 35.0-73.0 LYMPH % (test code = GLY%) 46.9 % 20.0-55.0 MID % (test code = GMID%) 9.4 % 0.0-10.0 GENERAL CHEMISTRY 13 *OW* [id number] 20:20:00 Test Item Value Reference Range Interpretation Comments GLUCOSE (test code = GGUL) 106 mg/dL 73-118 BUN (test code = GBUN) 18 mg/dL 7-22 CREATININE (test code = GCRE) 1.0 mg/dL 0.6-1.2 URIC ACID (test code = GUA) 5.9 mg/dL 2.2-6.6 CALCIUM (test code = GCL+) 9.2 mg/dL 8.0-10.3 ALBUMIN (test code = GALB) 4.1 g/dL 3.5-5.5 PROTEIN (test code = GTP) 7.8 g/dL 6.4-8.1 ALT (test code = GALT) 11 U/L 10-47 AST (test code = DAYTON) 21 U/L 11-38 ALK PHOS (test code = GALP) 69 U/L 42-141 BILI TOTAL (test code = GTBIL) 0.4 mg/dL 0.2-1.6 GGT (test code = GGGT) 52 U/L 5-65 AMYLASE (test code = GAMY) 33 U/L 14-97 SARS-CoV (RAPID ANTIGEN) WH2020-09-03 20:05:00 Test Item Value Reference Range Interpretation Comments SARS-CoV (ANTIGEN) NEGATIVE NEGATIVE (test code = COVAG) COVID AG (test This test has been code = COVAGC) marketed under the FDA Emergency Use Authorization (EUA) to meet challenges of the COVID-19 pandemic. The validation standards normally enforced by the FDA and the [employer] ([employer]) are more stringent than those required for this test. Therefore, the result should be interpreted with caution and close attention to other clinical and epidemiological data [facility] 8 Panel *OW* [id number] 19:33:00 Test Item Value Reference Range Interpretation Comments GLUCOSE (test code = GGUL) 106 mg/dL 73-118 BUN (test code = GBUN) 16 mg/dL 7-22 CREATININE (test code = GCRE) 1.1 mg/dL 0.6-1.2 CK TOTAL (test code = GCK) 121 U/L 30-190 SODIUM (test code = GNA+) 139 mmol/L 128-145 POTASSIUM (test code = GK+) 4.5 mmol/L 3.6-5.1 CHLORIDE (test code = GCL-) 107 mmol/L 98-108 TCO2 (test code = GTC02) 21 mmol/L 18-33 CBC (INCLUDES AUTOMATED DIFFERENTIAL) *2020-09-03 19:12:00 Test Item Value Reference Range Interpretation Comments WBC (test code = WBC) 9.6 10\S\3/uL 4.5-11.0 RBC (test code = RBC) 4.78 10\S\6/uL 4.30-5.70 HGB (test code = HBG) 14.2 g/dL 12.0-15.5 HCT (test code = HCT) 45.8 % 35.0-44.0 H MCV (test code = MCV) 95.8 fL 81.0-99.0 MCH (test code = MCH) 29.7 pg 27.0-31.0 MCHC (test code = MCHC) 31.0 g/dL 32.0-36.0 L RDW (test code = RDW) 12.0 % 11.5-14.5 PLT (test code = PLT) 426 10\S\3/uL 130-400 H MPV (test code = OMPV) 7.3 fL 6.2-10.2 NEUTROP # (test code = NE#) 6.0 10\S\3/uL 1.6-8.0 LYMPH # (test code = LY#) 2.8 10\S\3/uL 1.1-3.5 MID # (test code = GMID#) 0.8 10\S\3/uL 0.0-1.1 GRAN % (test code = GRA%) 62.2 % 35.0-73.0 LYMPH % (test code = GLY%) 29.1 % 20.0-55.0 MID % (test code = GMID%) 8.7 % 0.0-10.0 M[facility]te 8 Panel *OW* [id number] 06:13:00 Test Item Value Reference Range Interpretation Comments GLUCOSE (test code = GGUL) 94 mg/dL 73-118 BUN (test code = GBUN) 13 mg/dL 7-22 CREATININE (test code = GCRE) 1.0 mg/dL 0.6-1.2 CK TOTAL (test code = GCK) 118 U/L 30-190 SODIUM (test code = GNA+) 139 mmol/L 128-145 POTASSIUM (test code = GK+) 4.5 mmol/L 3.6-5.1 CHLORIDE (test code = GCL-) 107 mmol/L 98-108 TCO2 (test code = GTC02) 26 mmol/L 18-33 URINE OW2020-02-24 06:02:00 Test Item Value Reference Range Interpretation Comments PREG UR (test code = PGU) Negative NEGATIVE URINALYSIS W/O MICROSCOPICOW2020-02-24 06:02:00 Test Item Value Reference Range Interpretation Comments COLOR (test code = Yellow YELLOW COLU) CLARITY (test code = Clear CLEAR CLA) GLUCOSE UR (test Negative NEGATIVE code = UA GLUCOSE) BILI UR (test code = Negative NEGATIVE BILE) KETONES UR (test Negative NEGATIVE code = LEIDY) SP GRAVITY (test >=1.030 1.005-1.030 code = SPGR) PH UR (test code = 6.0 4.5-8.0 PH) PROTEIN UR (test Negative NEGATIVE code = PU) NITRITE UR (test Negative NEGATIVE code = NITRITE) UROBIL UR (test code 0.2 E.U./dL = GUROQ) UROBIL UR (test code UROBILINOGEN = GUROQC) REFERENCE RANGE 0.2 - 1.0 EU/dL BLOOD UR (test code Negative NEGATIVE = UA BLOOD) LEUK ES UR (test Negative NEGATIVE code = LEUK) GENERAL CHEMISTRY 13 *OW* [id number] 06:02:00 Test Item Value Reference Range Interpretation Comments GLUCOSE (test code = GGUL) 96 mg/dL 73-118 BUN (test code = GBUN) 13 mg/dL 7-22 CREATININE (test code = GCRE) 0.9 mg/dL 0.6-1.2 URIC ACID (test code = GUA) 5.4 mg/dL 2.2-6.6 CALCIUM (test code = GCL+) 9.3 mg/dL 8.0-10.3 ALBUMIN (test code = GALB) 4.2 g/dL 3.5-5.5 PROTEIN (test code = GTP) 7.6 g/dL 6.4-8.1 ALT (test code = GALT) 18 U/L 10-47 AST (test code = DAYTON) 27 U/L 11-38 ALK PHOS (test code = GALP) 69 U/L 42-141 BILI TOTAL (test code = GTBIL) 0.5 mg/dL 0.2-1.6 GGT (test code = GGGT) 64 U/L 5-65 AMYLASE (test code = GAMY) 33 U/L 14-97 CBC (INCLUDES AUTOMATED DIFFERENTIAL) *2020-02-24 05:51:00 Test Item Value Reference Range Interpretation Comments WBC (test code = WBC) 7.0 10\S\3/uL 4.5-11.0 RBC (test code = RBC) 4.72 10\S\6/uL 4.30-5.70 HGB (test code = HBG) 14.7 g/dL 12.0-15.5 HCT (test code = HCT) 46.4 % 35.0-44.0 H MCV (test code = MCV) 98.4 fL 81.0-99.0 MCH (test code = MCH) 31.1 pg 27.0-31.0 H MCHC (test code = MCHC) 31.7 g/dL 32.0-36.0 L RDW (test code = RDW) 12.4 % 11.5-14.5 PLT (test code = PLT) 374 10\S\3/uL 130-400 MPV (test code = OMPV) 7.1 fL 6.2-10.2 NEUTROP # (test code = NE#) 3.5 10\S\3/uL 1.6-8.0 LYMPH # (test code = LY#) 2.8 10\S\3/uL 1.1-3.5 MID # (test code = GMID#) 0.6 10\S\3/uL 0.0-1.1 GRAN % (test code = GRA%) 50.7 % 35.0-73.0 LYMPH % (test code = GLY%) 40.1 % 20.0-55.0 MID % (test code = GMID%) 9.2 % 0.0-10.0 GENERAL CHEMISTRY 13 *OW* [id number] 13:23:00 Test Item Value Reference Range Interpretation Comments GLUCOSE (test code = GGUL) 98 mg/dL 73-118 BUN (test code = GBUN) 11 mg/dL 7-22 CREATININE (test code = GCRE) 0.7 mg/dL 0.6-1.2 URIC ACID (test code = GUA) 5.3 mg/dL 2.2-6.6 CALCIUM (test code = GCL+) 8.9 mg/dL 8.0-10.3 ALBUMIN (test code = GALB) 4.2 g/dL 3.5-5.5 PROTEIN (test code = GTP) 7.4 g/dL 6.4-8.1 ALT (test code = GALT) 20 U/L 10-47 AST (test code = DAYTON) 26 U/L 11-38 ALK PHOS (test code = GALP) 66 U/L 42-141 BILI TOTAL (test code = GTBIL) 0.6 mg/dL 0.2-1.6 GGT (test code = GGGT) 49 U/L 5-65 AMYLASE (test code = GAMY) 32 U/L 14-97 [facility]te 8 Panel *OW* [id number] 13:12:00 Test Item Value Reference Range Interpretation Comments GLUCOSE (test code = GGUL) 95 mg/dL 73-118 BUN (test code = GBUN) 11 mg/dL 7-22 CREATININE (test code = GCRE) 0.8 mg/dL 0.6-1.2 CK TOTAL (test code = GCK) 103 U/L 30-190 SODIUM (test code = GNA+) 139 mmol/L 128-145 POTASSIUM (test code = GK+) 4.0 mmol/L 3.6-5.1 CHLORIDE (test code = GCL-) 105 mmol/L 98-108 TCO2 (test code = GTC02) 25 mmol/L 18-33 CBC (INCLUDES AUTOMATED DIFFERENTIAL) *2020-01-31 12:58:00 Test Item Value Reference Range Interpretation Comments WBC (test code = WBC) 7.2 10\S\3/uL 4.5-11.0 RBC (test code = RBC) 4.62 10\S\6/uL 4.30-5.70 HGB (test code = HBG) 14.2 g/dL 12.0-15.5 HCT (test code = HCT) 45.0 % 35.0-44.0 H MCV (test code = MCV) 97.5 fL 81.0-99.0 MCH (test code = MCH) 30.7 pg 27.0-31.0 MCHC (test code = MCHC) 31.6 g/dL 32.0-36.0 L RDW (test code = RDW) 13.1 % 11.5-14.5 PLT (test code = PLT) 377 10\S\3/uL 130-400 MPV (test code = OMPV) 7.1 fL 6.2-10.2 NEUTROP # (test code = NE#) 4.1 10\S\3/uL 1.6-8.0 LYMPH # (test code = LY#) 2.5 10\S\3/uL 1.1-3.5 MID # (test code = GMID#) 0.5 10\S\3/uL 0.0-1.1 GRAN % (test code = GRA%) 57.1 % 35.0-73.0 LYMPH % (test code = GLY%) 35.4 % 20.0-55.0 MID % (test code = GMID%) 7.5 % 0.0-10.0 URINE OW2020-01-31 12:56:00 Test Item Value Reference Range Interpretation Comments PREG UR (test code = PGU) Negative NEGATIVE URINALYSIS W/O MICROSCOPICOW2020-01-31 12:56:00 Test Item Value Reference Range Interpretation Comments COLOR (test code = Yellow YELLOW COLU) CLARITY (test code = Clear CLEAR CLA) GLUCOSE UR (test Negative NEGATIVE code = UA GLUCOSE) BILI UR (test code = Negative NEGATIVE BILE) KETONES UR (test Negative NEGATIVE code = LEIDY) SP GRAVITY (test >=1.030 1.005-1.030 code = SPGR) PH UR (test code = 6.5 4.5-8.0 PH) PROTEIN UR (test 1+ NEGATIVE A code = PU) NITRITE UR (test Negative NEGATIVE code = NITRITE) UROBIL UR (test code 0.2 E.U./dL = GUROQ) UROBIL UR (test code UROBILINOGEN = GUROQC) REFERENCE RANGE 0.2 - 1.0 EU/dL BLOOD UR (test code 3+ NEGATIVE A = UA BLOOD) LEUK ES UR (test 3+ NEGATIVE A code = LEUK) URINE OW2019-12-04 17:57:00 Test Item Value Reference Range Interpretation Comments PREG UR (test code = PGU) Negative NEGATIVE METLAC 12 PANEL *OW* [id number] 17:00:00 Test Item Value Reference Range Interpretation Comments ALBUMIN (test code = GALB) 4.4 g/dL 3.5-5.5 GLUCOSE (test code = GGUL) 128 mg/dL 73-118 H CREATININE (test code = GCRE) 0.6 mg/dL 0.6-1.2 BUN (test code = GBUN) 14 mg/dL 7-22 CALCIUM (test code = GCL+) 10.0 mg/dL 8.0-10.3 SODIUM (test code = GNA+) 142 mmol/L 128-145 POTASSIUM (test code = GK+) 4.7 mmol/L 3.6-5.1 CHLORIDE (test code = GCL-) 103 mmol/L 98-108 TCO2 (test code = GTC02) 22 mmol/L 18-33 MAGNESIUM (test code = GMG+) 2.2 mg/dL 1.6-2.3 LACTATE (test code = DEDE) 2.88 mmol/L 0.53-2.10 H PHOSPHORUS (test code = OPHOS) 2.4 mg/dL 2.2-4.1 GENERAL CHEMISTRY 13 *OW* [id number] 16:43:00 Test Item Value Reference Range Interpretation Comments GLUCOSE (test code = GGUL) 128 mg/dL 73-118 H BUN (test code = GBUN) 14 mg/dL 7-22 CREATININE (test code = GCRE) 0.8 mg/dL 0.6-1.2 URIC ACID (test code = GUA) 4.9 mg/dL 2.2-6.6 CALCIUM (test code = GCL+) 9.5 mg/dL 8.0-10.3 ALBUMIN (test code = GALB) 4.4 g/dL 3.5-5.5 PROTEIN (test code = GTP) 7.8 g/dL 6.4-8.1 ALT (test code = GALT) 23 U/L 10-47 AST (test code = DAYTON) 31 U/L 11-38 ALK PHOS (test code = GALP) 70 U/L 42-141 BILI TOTAL (test code = GTBIL) 0.4 mg/dL 0.2-1.6 GGT (test code = GGGT) 74 U/L 5-65 H AMYLASE (test code = GAMY) 32 U/L 14-97 D-DIMER TRIAGE OW2019-12-04 16:43:00 Test Item Value Reference Range Interpretation Comments D-DIMER (test code = <100 ng/mL D-DU <=599 GDDI) D-DIMER COMMENT (test *Level to rule out code = DDCOM) DVT or PE: <235 ng/mL D-DU* CBC (INCLUDES AUTOMATED DIFFERENTIAL) *2019-12-04 16:39:00 Test Item Value Reference Range Interpretation Comments WBC (test code = WBC) 9.9 10\S\3/uL 4.5-11.0 RBC (test code = RBC) 4.50 10\S\6/uL 4.30-5.70 HGB (test code = HBG) 14.3 g/dL 12.0-15.5 HCT (test code = HCT) 44.9 % 35.0-44.0 H MCV (test code = MCV) 99.8 fL 81.0-99.0 H MCH (test code = MCH) 31.8 pg 27.0-31.0 H MCHC (test code = MCHC) 31.8 g/dL 32.0-36.0 L RDW (test code = RDW) 11.9 % 11.5-14.5 PLT (test code = PLT) 375 10\S\3/uL 130-400 MPV (test code = OMPV) 7.1 fL 6.2-10.2 NEUTROP # (test code = NE#) 8.1 10\S\3/uL 1.6-8.0 H LYMPH # (test code = LY#) 1.5 10\S\3/uL 1.1-3.5 MID # (test code = GMID#) 0.3 10\S\3/uL 0.0-1.1 GRA % (test code = GRA%) 81.4 % 35.0-73.0 H LYMPH % (test code = GLY%) 15.4 % 20.0-55.0 L MID % (test code = GMID%) 3.2 % 0.0-10.0 PROTHROMBIN TIME i-STAT OW2019-12-04 16:39:00 Test Item Value Reference Range Interpretation Comments PT (test code = 11.1 s 10.0-13.0 PT1) INR (test code = 0.9 INR) INRH (test code = SUGGESTED THERAPEUTIC INRH) RANGE FOR INR: 2.5 - 3.5 For Patients with Prosthetic Valves or Patients with recurrent Thromboembolic Events 2.0 - 3.0 For Most Other Applications TROPONIN I OW2019-12-04 16:39:00 Test Item Value Reference Range Interpretation Comments TROPONIN I (test code = A84) <0.050 ng/mL 0.000-0.050 BRAIN NATRIURETIC PEPTIDE OW2019-12-04 16:39:00 Test Item Value Reference Range Interpretation Comments BNP (test code = OBNP) <5 pg/mL <=100 [facility] 8 Panel *OW* [id number] 16:39:00 Test Item Value Reference Range Interpretation Comments GLUCOSE (test code = GGUL) 132 mg/dL 73-118 H BUN (test code = GBUN) 13 mg/dL 7-22 CREATININE (test code = GCRE) 0.4 mg/dL 0.6-1.2 L CK TOTAL (test code = GCK) 98 U/L 30-190 SODIUM (test code = GNA+) 138 mmol/L 128-145 POTASSIUM (test code = GK+) 4.5 mmol/L 3.6-5.1 CHLORIDE (test code = GCL-) 106 mmol/L 98-108 TCO2 (test code = GTC02) 23 mmol/L 18-33 URINALYSIS W/O MICROSCOPICOW2019-12-04 16:39:00 Test Item Value Reference Range Interpretation Comments COLOR (test code = Yellow YELLOW COLU) CLARITY (test code = Clear CLEAR CLA) GLUCOSE UR (test Negative NEGATIVE code = UA GLUCOSE) BILI UR (test code = Negative NEGATIVE BILE) KETONES UR (test Negative NEGATIVE code = LEIDY) SP GRAVITY (test 1.025 1.005-1.030 code = SPGR) PH UR (test code = 7.5 4.5-8.0 PH) PROTEIN UR (test Negative NEGATIVE code = PU) NITRITE UR (test Negative NEGATIVE code = NITRITE) UROBIL UR (test code 0.2 E.U./dL = GUROQ) UROBIL UR (test code UROBILINOGEN = GUROQC) REFERENCE RANGE 0.2 - 1.0 EU/dL BLOOD UR (test code Negative NEGATIVE = UA BLOOD) LEUK ES UR (test 1+ NEGATIVE A code = LEUK) test, [id number] 11:18:00 Test Item Value Reference Range Interpretation Comments HCG (test code = HCG) negative [facility] W/O MICROSCOPICOW 2019-08-17 09:46:00 Test Item Value Reference Range Interpretation Comments COLOR (test code = YELLOW YELLOW COLU) CLARITY (test code = CLEAR CLEAR CLA) GLUCOSE UR (test NEGATIVE NEGATIVE code = UA GLUCOSE) BILI UR (test code = NEGATIVE NEGATIVE BILE) KETONES UR (test NEGATIVE NEGATIVE code = LEIDY) SP GRAVITY (test >=1.030 1.005-1.030 code = SPGR) PH UR (test code = 6.0 4.5-8.0 PH) PROTEIN UR (test NEGATIVE NEGATIVE code = PU) NITRITE UR (test NEGATIVE NEGATIVE code = NITRITE) UROBIL UR (test code 0.2 E.U./dL = GUROQ) UROBIL UR (test code UROBILINOGEN = GUROQC) REFERENCE RANGE 0.2 - 1.0 EU/dL BLOOD UR (test code NEGATIVE NEGATIVE = UA BLOOD) LEUK ES UR (test NEGATIVE NEGATIVE code = LEUK) URINE OW2019-08-17 09:46:00 Test Item Value Reference Range Interpretation Comments PREG UR (test code = PGU) NEGATIVE NEGATIVE Cytology report of Cervical or vaginal smear or scraping Cyto stain.thin prep 2019-08-13 00:00:00 Test Item Value Reference Range Interpretation Comments age gdln acog testing (test code = 30-65 age gdln acog testing) Cytology report of Cervical or comment vaginal smear or scraping Cyto stain (test code = 90139-7) Statement of adequacy comment [Interpretation] of Cervical or vaginal smear or scraping by Cyto stain (test code = 32130-5) Diagnosis ICD code [Identifier] comment (test code = 85123-4) [employer] who read Cyto stain of comment Cervical or vaginal smear or scraping (test code = 91391-2) Microscopic observation [Identifier] . in Unspecified specimen by Other stain (test code = 10826-4) note: (test code = note:) comment Cytology report of Cervical or comment vaginal smear or scraping Cyto stain.thin prep (test code = 33561-0) Human papilloma virus negative negative 16+18+31+33+35+39+45+51+52+56+58+59+ 66+68 DNA [Presence] in Cervix by Probe with signal amplification (test code = 25685-3) Chlamydia trachomatis rRNA negative negative [Presence] in Cervix by JAMES with probe detection (test code = 12190-6) Neisseria gonorrhoeae rRNA negative negative [Presence] in Cervix by JAMES with probe detection (test code = 56402-2) Trichomonas vaginalis rRNA negative negative [Presence] in Unspecified specimen by JAMES with probe detection (test code = 24682-4) [facility] *OW* mamadou 2019-07-01 06:30:00 Test Item Value Reference Range Interpretation Comments GLUCOSE (test code = GGUL) 95 mg/dL 73-118 BUN (test code = GBUN) 14 mg/dL 7-22 CREATININE (test code = GCRE) 0.7 mg/dL 0.6-1.2 CK TOTAL (test code = GCK) 87 U/L 30-190 SODIUM (test code = GNA+) 143 mmol/L 128-145 POTASSIUM (test code = GK+) 4.5 mmol/L 3.6-5.1 CHLORIDE (test code = GCL-) 108 mmol/L 98-108 TCO2 (test code = GTC02) 23 mmol/L 18-33 CBC (INCLUDES AUTOMATED DIFFERENTIAL) *2019-07-01 06:21:00 Test Item Value Reference Range Interpretation Comments WBC (test code = WBC) 7.8 10\S\3/uL 4.5-11.0 RBC (test code = RBC) 4.62 10\S\6/uL 4.30-5.70 HGB (test code = HBG) 14.1 g/dL 12.0-15.5 HCT (test code = HCT) 45.0 % 35.0-44.0 H MCV (test code = MCV) 97.3 fL 81.0-99.0 MCH (test code = MCH) 30.5 pg 27.0-31.0 MCHC (test code = MCHC) 31.3 g/dL 32.0-36.0 L RDW (test code = RDW) 11.7 % 11.5-14.5 PLT (test code = PLT) 345 10\S\3/uL 130-400 MPV (test code = OMPV) 7.1 fL 6.2-10.2 NEUTROP # (test code = NE#) 4.4 10\S\3/uL 1.6-8.0 LYMPH # (test code = LY#) 2.8 10\S\3/uL 1.1-3.5 MID # (test code = GMID#) 0.6 10\S\3/uL 0.0-1.1 GRA % (test code = GRA%) 56.1 % 35.0-73.0 LYMPH % (test code = GLY%) 35.7 % 20.0-55.0 MID % (test code = GMID%) 8.2 % 0.0-10.0 URINALYSIS W/O MICROSCOPICOW2019-07-01 06:21:00 Test Item Value Reference Range Interpretation Comments COLOR (test code = Yellow YELLOW COLU) CLARITY (test code = Clear CLEAR CLA) GLUCOSE UR (test Negative NEGATIVE code = UA GLUCOSE) BILI UR (test code = Negative NEGATIVE BILE) KETONES UR (test Negative NEGATIVE code = LEIDY) SP GRAVITY (test >=1.030 1.005-1.030 code = SPGR) PH UR (test code = 6.0 4.5-8.0 PH) PROTEIN UR (test Negative NEGATIVE code = PU) NITRITE UR (test Negative NEGATIVE code = NITRITE) UROBIL UR (test code 0.2 E.U./dL = GUROQ) UROBIL UR (test code UROBILINOGEN = GUROQC) REFERENCE RANGE 0.2 - 1.0 EU/dL BLOOD UR (test code Trace-intact NEGATIVE = UA BLOOD) LEUK ES UR (test Negative NEGATIVE code = LEUK) TROPONIN I OW2019-06-28 08:25:00 Test Item Value Reference Range Interpretation Comments TROPONIN I (test code = A84) <0.050 ng/mL 0.000-0.050 URINE OW2019-06-28 08:18:00 Test Item Value Reference Range Interpretation Comments PREG UR (test code = PGU) Negative NEGATIVE GENERAL CHEMISTRY 13 *OW* [id number] 08:18:00 Test Item Value Reference Range Interpretation Comments GLUCOSE (test code = GGUL) 98 mg/dL 73-118 BUN (test code = GBUN) 16 mg/dL 7-22 CREATININE (test code = GCRE) 0.9 mg/dL 0.6-1.2 URIC ACID (test code = GUA) 6.1 mg/dL 2.2-6.6 CALCIUM (test code = GCL+) 8.8 mg/dL 8.0-10.3 ALBUMIN (test code = GALB) 3.7 g/dL 3.5-5.5 PROTEIN (test code = GTP) 7.2 g/dL 6.4-8.1 ALT (test code = GALT) 17 U/L 10-47 AST (test code = DAYTON) 23 U/L 11-38 ALK PHOS (test code = GALP) 56 U/L 42-141 BILI TOTAL (test code = GTBIL) 0.5 mg/dL 0.2-1.6 GGT (test code = GGGT) 41 U/L 5-65 AMYLASE (test code = GAMY) 33 U/L 14-97 INFLUENZA A AND B OW2019-06-28 08:12:00 Test Item Value Reference Range Interpretation Comments INFLUENZ A (test code = INFA) NEGATIVE NEGATIVE INFLUENZ B (test code = INFB) NEGATIVE NEGATIVE URINALYSIS W/O MICROSCOPICOW2019-06-28 08:08:00 Test Item Value Reference Range Interpretation Comments COLOR (test code = Yellow YELLOW COLU) CLARITY (test code = Clear CLEAR CLA) GLUCOSE UR (test Negative NEGATIVE code = UA GLUCOSE) BILI UR (test code = Negative NEGATIVE BILE) KETONES UR (test Negative NEGATIVE code = LEIDY) SP GRAVITY (test 1.025 1.005-1.030 code = SPGR) PH UR (test code = 6.0 4.5-8.0 PH) PROTEIN UR (test Negative NEGATIVE code = PU) NITRITE UR (test Negative NEGATIVE code = NITRITE) UROBIL UR (test code 0.2 E.U./dL = GUROQ) UROBIL UR (test code UROBILINOGEN = GUROQC) REFERENCE RANGE 0.2 - 1.0 EU/dL BLOOD UR (test code Trace-intact NEGATIVE = UA BLOOD) LEUK ES UR (test Trace NEGATIVE code = LEUK) CBC (INCLUDES AUTOMATED DIFFERENTIAL) *2019-06-28 08:06:00 Test Item Value Reference Range Interpretation Comments WBC (test code = WBC) 6.0 10\S\3/uL 4.5-11.0 RBC (test code = RBC) 4.38 10\S\6/uL 4.30-5.70 HGB (test code = HBG) 13.3 g/dL 12.0-15.5 HCT (test code = HCT) 42.5 % 35.0-44.0 MCV (test code = MCV) 97.0 fL 81.0-99.0 MCH (test code = MCH) 30.4 pg 27.0-31.0 MCHC (test code = MCHC) 31.3 g/dL 32.0-36.0 L RDW (test code = RDW) 12.5 % 11.5-14.5 PLT (test code = PLT) 340 10\S\3/uL 130-400 MPV (test code = OMPV) 7.0 fL 6.2-10.2 NEUTROP # (test code = NE#) 3.2 10\S\3/uL 1.6-8.0 LYMPH # (test code = LY#) 2.3 10\S\3/uL 1.1-3.5 MID # (test code = GMID#) 0.5 10\S\3/uL 0.0-1.1 GRA % (test code = GRA%) 53.3 % 35.0-73.0 LYMPH % (test code = GLY%) 37.8 % 20.0-55.0 MID % (test code = GMID%) 8.9 % 0.0-10.0 PROTHROMBIN TIME i-STAT OW2019-06-23 22:45:00 Test Item Value Reference Range Interpretation Comments PT (test code = <>0.1 s 10.0-13.0 L PT1) INR (test code = <0.9 INR) INRH (test code = SUGGESTED THERAPEUTIC INRH) RANGE FOR INR: 2.5 - 3.5 For Patients with Prosthetic Valves or Patients with recurrent Thromboembolic Events 2.0 - 3.0 For Most Other Applications GENERAL CHEMISTRY 13 *OW* [id number] 22:39:00 Test Item Value Reference Range Interpretation Comments GLUCOSE (test code = GGUL) 101 mg/dL 73-118 BUN (test code = GBUN) 13 mg/dL 7-22 CREATININE (test code = GCRE) 0.7 mg/dL 0.6-1.2 URIC ACID (test code = GUA) 5.7 mg/dL 2.2-6.6 CALCIUM (test code = GCL+) 9.2 mg/dL 8.0-10.3 ALBUMIN (test code = GALB) 4.4 g/dL 3.5-5.5 PROTEIN (test code = GTP) 8.2 g/dL 6.4-8.1 H ALT (test code = GALT) 22 U/L 10-47 AST (test code = DAYTON) 33 U/L 11-38 ALK PHOS (test code = GALP) 68 U/L 42-141 BILI TOTAL (test code = GTBIL) 0.6 mg/dL 0.2-1.6 GGT (test code = GGGT) 52 U/L 5-65 AMYLASE (test code = GAMY) 34 U/L 14-97 TROPONIN I OW2019-06-23 22:35:00 Test Item Value Reference Range Interpretation Comments TROPONIN I (test code = A84) <0.050 ng/mL 0.000-0.050 DRUGS OF ABUSE*OW*2019-06-23 22:34:00 Test Item Value Reference Range Interpretation Comments DRUG SCRN (test code URINE DRUG SCREEN = HDOA) This is an unconfirmed screening result and should not be used for non-medical purposes PHENCYCLID (test Negative NEGATIVE code = GPCP) BENZODIAZE (test Negative NEGATIVE code = GBZO) COCAINE (test code = Negative NEGATIVE GCOC) AMPHETAMIN (test Negative NEGATIVE code = GAMP) THC (test code = Negative NEGATIVE GTHC) OPIATES (test code = Negative NEGATIVE CANDELARIA) BARBITURAT (test Negative NEGATIVE code = GBAR) TCA (test code = Positive NEGATIVE A GTCA) DOAH (test code = URINE DRUG DOAH) SCREEN CUT OFF VALUES Amphetamines 1000 ng/mL Barbituates 300 ng/mL Benzodiazepines 300 ng/mL Cocaine 300 ng/mL Opiates 300 ng/mL Phencyclidine 25 ng/mL THC 50 ng/mL Tricyclic Antidepressants 1000 ng/mL MetyLyte 8 Panel *OW* [id number] 22:27:00 Test Item Value Reference Range Interpretation Comments GLUCOSE (test code = GGUL) 103 mg/dL 73-118 BUN (test code = GBUN) 13 mg/dL 7-22 CREATININE (test code = GCRE) 0.7 mg/dL 0.6-1.2 CK TOTAL (test code = GCK) 120 U/L 30-190 SODIUM (test code = GNA+) 140 mmol/L 128-145 POTASSIUM (test code = GK+) 3.8 mmol/L 3.6-5.1 CHLORIDE (test code = GCL-) 107 mmol/L 98-108 TCO2 (test code = GTC02) 20 mmol/L 18-33 URINE OW2019-06-23 22:27:00 Test Item Value Reference Range Interpretation Comments PREG UR (test code = PGU) Negative NEGATIVE CBC (INCLUDES AUTOMATED DIFFERENTIAL) *2019-06-23 22:22:00 Test Item Value Reference Range Interpretation Comments WBC (test code = WBC) 11.2 10\S\3/uL 4.5-11.0 H RBC (test code = RBC) 4.62 10\S\6/uL 4.30-5.70 HGB (test code = HBG) 14.1 g/dL 12.0-15.5 HCT (test code = HCT) 44.8 % 35.0-44.0 H MCV (test code = MCV) 96.9 fL 81.0-99.0 MCH (test code = MCH) 30.5 pg 27.0-31.0 MCHC (test code = MCHC) 31.5 g/dL 32.0-36.0 L RDW (test code = RDW) 12.8 % 11.5-14.5 PLT (test code = PLT) 359 10\S\3/uL 130-400 MPV (test code = OMPV) 7.4 fL 6.2-10.2 NEUTROP # (test code = NE#) 6.7 10\S\3/uL 1.6-8.0 LYMPH # (test code = LY#) 3.6 10\S\3/uL 1.1-3.5 H MID # (test code = GMID#) 0.9 10\S\3/uL 0.0-1.1 GRA % (test code = GRA%) 59.6 % 35.0-73.0 LYMPH % (test code = GLY%) 32.5 % 20.0-55.0 MID % (test code = GMID%) 7.9 % 0.0-10.0 URINALYSIS W/O MICROSCOPICOW2019-06-23 22:22:00 Test Item Value Reference Range Interpretation Comments COLOR (test code = Yellow YELLOW COLU) CLARITY (test code = Clear CLEAR CLA) GLUCOSE UR (test Negative NEGATIVE code = UA GLUCOSE) BILI UR (test code = Negative NEGATIVE BILE) KETONES UR (test Negative NEGATIVE code = LEIDY) SP GRAVITY (test >=1.030 1.005-1.030 code = SPGR) PH UR (test code = 6.0 4.5-8.0 PH) PROTEIN UR (test 1+ NEGATIVE A code = PU) NITRITE UR (test Negative NEGATIVE code = NITRITE) UROBIL UR (test code 0.2 E.U./dL = GUROQ) UROBIL UR (test code UROBILINOGEN = GUROQC) REFERENCE RANGE 0.2 - 1.0 EU/dL BLOOD UR (test code 1+ NEGATIVE A = UA BLOOD) LEUK ES UR (test Negative NEGATIVE code = LEUK) U/S PELVIS *OW*2018-07-05 13:01:09CLINICAL HISTORY: Right lower quadrant abdominal pain.LOCATION: D4.FINDINGS: Real-time grayscale sonographic evaluation is performed of the pelvisusing transabdominal and transvaginal technique. No comparison studies. Theuterus measures 8.0 cm sagittal x 5.4 cm AP x 3.9 cm transverse. Theendometrium is not measured. There is an intrauterine device in place. There seble 1.7 cm complex cystic lesion within the right ovary and 2.1 cm simple cystwithin the left ovary. There is normal arterial Doppler flowwithin bothovaries. The right ovary measures 2.8 cm x 1.6 cm x 2.1 cm and the left ovarymeasures 3.1cm x 1.6 cm x 2.2 cm. No free fluid is noted.IMPRESSION:1. There is a 1.7 cm complex cystic lesion within the right ovary. This mayrepresent hemorrhagic cyst. Follow-up pelvic ultrasound in 6 weeks may beperformed.2. There is a 2.1 cm simple cyst within the left ovary.3. Intrauterine device is noted in place.CT STONE PROTOCOL STUDY *OW*2018-07-05 10:06:55CLINICAL HISTORY: Right flank pain.LOCATION: D4.FINDINGS: Multislice axial images are obtained through the abdomen and pelviswithout oral or intravenous contrast. Coronal reconstructed images are obtainedand are used in interpretation.No comparison studies. There is no urolithiasis or hydronephrosis. The kidneysand adrenal glands are within normal limits. There is mild diffuse fattyinfiltration of liver. The liver is enlarged measuring 20.1 cm cranial caudalat the midclavicular line. No abnormalities are noted of the gallbladder,pancreas, or spleen. Mildly prominent 1.1 cm rambo hepatis node is nonspecificand could be reactive. No significant adenopathy otherwise identified. No freefluid or fluid collections are evident. No signs of inflammation noted. Thereis an intrauterine device within the uterus. The intrapelvic viscera otherwiseappear to be within normal limits. There are no acute skeletalor soft tissueabnormalities.IMPRESSION:1. There is no urolithiasis or hydronephrosis.2. There is mild diffuse fatty infiltration of the liver with hepatomegaly.3. Mildly prominent 1.1 cm rambo hepatis node is nonspecific and may bereactive. Clinical correlation is recommended as well as CT follow-up in 6months.*One or more of the following radiation dose reduction techniques was used:automated exposure control, adjustment of mA and/or KV according to patientsize, and/or utilization of iterative reconstruction technique.CHEM8+ i- STAT OW2018-07-05 09:47:00 Test Item Value Reference Range Interpretation Comments SODIUM (test code = MARLENE) 140 mmol/L 138-146 POTASSIUM (test code = KI) 5.1 mmol/L 3.5-4.9 H CHLORIDE (test code = CLI) 105 mmol/L 98-109 CA IONIZED (test code = ICAI) 1.05 mmol/L 1.12-1.32 L GLUCOSE (test code = GLUI) 102 mg/dL 75-100 H TCO2 (test code = TCO2) 24 mmol/L 24-29 BUN (test code = BUN1) 16 mg/dL 8-26 CREATININE (test code = CREAI) 0.6 mg/dL 0.6-1.3 ANION GAP (test code = GANG) 17.0 mmol/L HGB (test code = MHB) 14.6 g/dL 12.0-17.0 HCT (test code = MHCT) 43.0 % 38.0-51.0 CBC (INCLUDES AUTOMATED DIFFERENTIAL) *2018-07-05 09:45:00 Test Item Value Reference Range Interpretation Comments WBC (test code = WBC) 6.4 10\S\3/uL 4.5-11.0 RBC (test code = RBC) 4.27 10\S\6/uL 4.30-5.70 L HGB (test code = HBG) 14.0 g/dL 12.0-15.5 HCT (test code = HCT) 40.2 % 35.0-44.0 MCV (test code = MCV) 94.1 fL 81.0-99.0 MCH (test code = MCH) 32.8 pg 27.0-31.0 H MCHC (test code = MCHC) 34.8 g/dL 32.0-36.0 RDW (test code = RDW) 13.4 % 11.5-14.5 PLT (test code = PLT) 320 10\S\3/uL 130-400 MPV (test code = OMPV) 7.2 fL 6.2-10.2 NEUTROP # (test code = NE#) 3.8 10\S\3/uL 1.6-8.0 LYMPH # (test code = LY#) 2.1 10\S\3/uL 1.1-3.5 MID # (test code = GMID#) 0.5 10\S\3/uL 0.0-1.1 GRA % (test code = GRA%) 58.7 % 35.0-73.0 LYMPH % (test code = GLY%) 32.8 % 20.0-55.0 MID % (test code = GMID%) 8.5 % 0.0-10.0 DRUGS OF ABUSE*OW*2018-07-05 09:41:00 Test Item Value Reference Range Interpretation Comments DRUG SCRN (test code URINE DRUG SCREEN = HDOA) This is an unconfirmed screening result and should not be used for non-medical purposes PHENCYCLID (test Negative NEGATIVE code = GPCP) BENZODIAZE (test Negative NEGATIVE code = GBZO) COCAINE (test code = Negative NEGATIVE GCOC) AMPHETAMIN (test Negative NEGATIVE code = GAMP) THC (test code = Negative NEGATIVE GTHC) OPIATES (test code = Negative NEGATIVE CANDELARIA) BARBITURAT (test Negative NEGATIVE code = GBAR) TCA (test code = Negative NEGATIVE GTCA) DOAH (test code = URINE DRUG DOAH) SCREEN CUT OFF VALUES Amphetamines 1000 ng/mL Barbituates 300 ng/mL Benzodiazepines 300 ng/mL Cocaine 300 ng/mL Opiates 300 ng/mL Phencyclidine 25 ng/mL THC 50 ng/mL Tricyclic Antidepressants 1000 ng/mL URINE OW2018-07-05 09:38:00 Test Item Value Reference Range Interpretation Comments PREG UR (test code = PGU) Negative NEGATIVE URINALYSIS W/O MICROSCOPICOW2018-07-05 09:33:00 Test Item Value Reference Range Interpretation Comments COLOR (test code = Yellow YELLOW COLU) CLARITY (test code = Clear CLEAR CLA) GLUCOSE UR (test Negative NEGATIVE code = UA GLUCOSE) BILI UR (test code = Negative NEGATIVE BILE) KETONES UR (test Negative NEGATIVE code = LEIDY) SP GRAVITY (test 1.025 1.005-1.030 code = SPGR) PH UR (test code = 6.0 4.5-8.0 PH) PROTEIN UR (test Negative NEGATIVE code = PU) NITRITE UR (test Negative NEGATIVE code = NITRITE) UROBIL UR (test code 0.2 E.U./dL = GUROQ) UROBIL UR (test code UROBILINOGEN = GUROQC) REFERENCE RANGE 0.2 - 1.0 EU/dL BLOOD UR (test code 2+ NEGATIVE A = UA BLOOD) LEUK ES UR (test Negative NEGATIVE code = LEUK) CBC (INCLUDES AUTOMATED DIFFERENTIAL)*[id number] 07:07:00 Test Item Value Reference Range Interpretation Comments WBC (test code = WBC) 14.5 10\S\3/uL 4.5-11.0 H RBC (test code = RBC) 3.69 10\S\6/uL 4.30-5.70 L HGB (test code = HBG) 11.7 g/dL 12.0-15.5 L HCT (test code = HCT) 34.9 % 35.0-44.0 L MCV (test code = MCV) 94.6 fL 81.0-99.0 MCH (test code = MCH) 31.7 pg 27.0-31.0 H MCHC (test code = MCHC) 33.5 g/dL 32.0-36.0 RDW (test code = RDW) 14.9 % 11.5-14.5 H PLT (test code = PLT) 277 10\S\3/uL 130-400 MPV (test code = MPV) 10.0 fL 9.4-12.4 NEUTROP # (test code = NE#) 11.6 10\S\3/uL 1.6-8.0 H LYMPH # (test code = LY#) 1.7 10\S\3/uL 1.1-3.5 MONOCYTE # (test code = MO#) 1.0 10\S\3/uL 0.0-1.1 EOSINOPH # (test code = EO#) 0.0 10\S\3/uL 0.0-0.7 BASOPHIL # (test code = BA#) 0.0 10\S\3/uL 0.0-0.3 IG # (test code = IG#) 0.09 10\S\3/uL 0.00-0.06 H NRBC # (test code = NRBC#) 0.00 10\S\3/uL 0.00-0.01 NEUTROPH % (test code = NE%) 80.3 % 35.0-73.0 H LYMPH % (test code = LY%) 11.8 % 20.0-55.0 L MONO % (test code = MO%) 6.8 % 2.5-10.0 EOSINOPH % (test code = EO%) 0.2 % 0.0-5.0 BASOPHIL % (test code = BA%) 0.3 % 0.0-2.0 IG % (test code = IG%) 0.6 % 0.0-0.8 NRBC% (test code = NRBC%) 0.0 % 0.0-0.2 MANDIFF (test code = WMDIFF) NO NO RBC MORPH (test code = NORMAL WRBCMOR) HIV *WW*2017-09-24 05:41:00 Test Item Value Reference Range Interpretation Comments HIV-1,2 and p24 (test code = NON-REACTIVE NON-REACTIVE CHIV) SYPHILIS SCREENING WW2017-09-24 05:14:00 Test Item Value Reference Range Interpretation Comments T PALLIDUM AB (test NON-REACTIVE NON-REACTIVE code = SYPHINT) SYPHC (test code = RPR test has been SYPHC) updated to Treponemal Immunoassay. Interpretation of results is similar HEPATITIS B SURFACE ANTIGEN *WW*2017-09-24 05:12:00 Test Item Value Reference Range Interpretation Comments HBSAG (test code = HBSAG) NON-REACTIVE NON-REACTIVE CBC (INCLUDES AUTOMATED DIFFERENTIAL)*[id number] 15:48:00 Test Item Value Reference Range Interpretation Comments WBC (test code = WBC) 8.6 10\S\3/uL 4.5-11.0 RBC (test code = RBC) 4.22 10\S\6/uL 4.30-5.70 L HGB (test code = HBG) 13.1 g/dL 12.0-15.5 HCT (test code = HCT) 39.2 % 35.0-44.0 MCV (test code = MCV) 92.9 fL 81.0-99.0 MCH (test code = MCH) 31.0 pg 27.0-31.0 MCHC (test code = MCHC) 33.4 g/dL 32.0-36.0 RDW (test code = RDW) 14.9 % 11.5-14.5 H PLT (test code = PLT) 262 10\S\3/uL 130-400 MPV (test code = MPV) 9.9 fL 9.4-12.4 NEUTROP # (test code = NE#) 6.1 10\S\3/uL 1.6-8.0 LYMPH # (test code = LY#) 1.5 10\S\3/uL 1.1-3.5 MONOCYTE # (test code = MO#) 0.8 10\S\3/uL 0.0-1.1 EOSINOPH # (test code = EO#) 0.1 10\S\3/uL 0.0-0.7 BASOPHIL # (test code = BA#) 0.0 10\S\3/uL 0.0-0.3 IG # (test code = IG#) 0.06 10\S\3/uL 0.00-0.06 NRBC # (test code = NRBC#) 0.00 10\S\3/uL 0.00-0.01 NEUTROPH % (test code = NE%) 71.5 % 35.0-73.0 LYMPH % (test code = LY%) 17.0 % 20.0-55.0 L MONO % (test code = MO%) 9.4 % 2.5-10.0 EOSINOPH % (test code = EO%) 0.9 % 0.0-5.0 BASOPHIL % (test code = BA%) 0.5 % 0.0-2.0 IG % (test code = IG%) 0.7 % 0.0-0.8 NRBC% (test code = NRBC%) 0.0 % 0.0-0.2 MANDIFF (test code = WMDIFF) NO NO RBC MORPH (test code = NORMAL WRBCMOR) FERN TEST WW2017-09-23 14:04:00 Test Item Value Reference Range Interpretation Comments FERN TEST (test code = FERNING IS PRESENT FERN) AMNIOTEST WW2017-09-23 13:58:00 Test Item Value Reference Range Interpretation Comments AMNIO PH (test 6.5 code = AMNIOTEST) AMNIO PH (test INTERPRETATION OF RESULTS code = AMNIOTESTH) 5.0 --- 6.0 Intact Amniotic Membrane 6.5 --- >=7.5 Possible Ruptured Membrane -- PRO TIME AND PTT *WW*2017-09-15 02:46:00 Test Item Value Reference Range Interpretation Comments PT (test code = 10.9 s 9.8-13.6 TT) INR (test code = 1.0 INR) INRH (test code = SUGGESTED THERAPEUTIC INRH) RANGE FOR INR: 2.5 - 3.5 For Patients with Prosthetic Valves or Patients with recurrent Thromboembolic Events 2.0 - 3.0 For Most Other Applications PTT (test code = 23.0 s 20.2-38.0 PTT) PTTH (test code = To monitor the PTTH) effectiveness of heparin, we offer the Anti-Xa (Heparin Assay). It can be used for either unfractionated or LMW Heparin. Order Code is ANTI-XA URINALYSIS WITH MICRO *WW*2017-09-15 02:45:00 Test Item Value Reference Range Interpretation Comments COLOR (test code = COLU) YELLOW YELLOW CLARITY (test code = CLA) CLEAR CLEAR GLUCOSE UR (test code = UA GLUCOSE) NEGATIVE NEGATIVE BILI UR (test code = BILE) NEGATIVE NEGATIVE KETONES UR (test code = LEIDY) NEGATIVE NEGATIVE SP GRAVITY (test code = SPGR) 1.025 1.005-1.030 PH UR (test code = PH) 6.0 4.5-8.0 PROTEIN UR (test code = PU) 1+ NEGATIVE A UROBIL UR (test code = UROQ) 0.2 EU/dL 0.2-1.0 NITRITE UR (test code = NITRITE) NEGATIVE NEGATIVE BLOOD UR (test code = UA BLOOD) NEGATIVE NEGATIVE LEUK ES UR (test code = LEUK) NEGATIVE NEGATIVE WBC UR (test code = UWBC) 1 /HPF 0-5 RBC UR (test code = URBC) 2 /HPF 0-2 EPITH UR (test code = UEPC) FEW /LPF FEW BACTERIA UR (test code = UBACT) FEW /HPF NONE A CAST UR (test code = CAST) /LPF NONE CRYSTAL UR (test code = CRYU) / LPF NONE MUCUS UR (test code = MUC) / HPF NONE AMORPH UR (test code = LUCAS) / HPF NONE TRICH UR (test code = UTRICH) /HPF NONE YEAST UR (test code = UY) /HPF NONE SPERM UR (test code = USPERM) /HPF NONE FIBRINOGEN QUANTITATIVE *WW*2017-09-15 02:44:00 Test Item Value Reference Range Interpretation Comments FIBRINOGEN (test code = FIB) 693 mg/dL 260-480 H LIVER PROFILE WW2017-09-15 02:26:00 Test Item Value Reference Range Interpretation Comments BILI TOTAL (test code = 11A) 0.3 mg/dL 0.2-1.0 BILI DIRCT (test code = 12A) 0.1 mg/dL 0.0-0.2 BILI INDIR (test code = BILII) 0.2 mg/dL <=0.8 PROTEIN (test code = 07D) 6.4 g/dL 6.4-8.2 ALBUMIN (test code = 08D) 2.5 g/dL 3.5-4.8 L GLOBULIN (test code = GLB) 3.9 g/dL 1.5-3.8 H ALB/GLOB (test code = AGRR) 0.6 1.0-2.6 L ALK PHOS (test code = 35A) 128 IU/L 42-121 H AST (test code = 30A) 19 IU/L <=42 ALT (test code = 31A) 20 IU/L <=78 LDH-LACTIC DEHYDROGENASE WW2017-09-15 02:22:00 Test Item Value Reference Range Interpretation Comments LDH (test code = 33A) 141 IU/L 100-190 BASIC METABOLIC PANEL *WW*2017-09-15 02:17:00 Test Item Value Reference Range Interpretation Comments GLUCOSE (test code = 06D) 71 mg/dL 75-100 L SODIUM (test code = 01A) 141 mmol/L 136-145 POTASSIUM (test code = 01B) 4.1 mmol/L 3.6-5.1 CHLORIDE (test code = 04A) 109 mmol/L 98-107 H CO2 (test code = 02A) 20 mmol/L 22-32 L ANION GAP (test code = ANG) 16.0 mmol/L BUN (test code = 05D) 8 mg/dL 7-18 CREATININE (test code = 03E) 0.5 mg/dL 0.4-1.1 BUN/CREA (test code = BCR) 15 12-20 CALCIUM (test code = 09D) 8.7 mg/dL 8.3-9.5 URIC ACID 2017-09-15 02:16:00 Test Item Value Reference Range Interpretation Comments URIC ACID (test code = 41A) 4.9 mg/dL 2.6-6.0 CBC (INCLUDES AUTOMATED DIFFERENTIAL)*[id number] 02:12:00 Test Item Value Reference Range Interpretation Comments WBC (test code = WBC) 9.0 10\S\3/uL 4.5-11.0 RBC (test code = RBC) 3.87 10\S\6/uL 4.30-5.70 L HGB (test code = HBG) 12.3 g/dL 12.0-15.5 HCT (test code = HCT) 36.2 % 35.0-44.0 MCV (test code = MCV) 93.5 fL 81.0-99.0 MCH (test code = MCH) 31.8 pg 27.0-31.0 H MCHC (test code = MCHC) 34.0 g/dL 32.0-36.0 RDW (test code = RDW) 14.8 % 11.5-14.5 H PLT (test code = PLT) 266 10\S\3/uL 130-400 MPV (test code = MPV) 9.6 fL 9.4-12.4 NEUTROP # (test code = NE#) 5.8 10\S\3/uL 1.6-8.0 LYMPH # (test code = LY#) 2.1 10\S\3/uL 1.1-3.5 MONOCYTE # (test code = MO#) 0.9 10\S\3/uL 0.0-1.1 EOSINOPH # (test code = EO#) 0.1 10\S\3/uL 0.0-0.7 BASOPHIL # (test code = BA#) 0.0 10\S\3/uL 0.0-0.3 IG # (test code = IG#) 0.10 10\S\3/uL 0.00-0.06 H NRBC # (test code = NRBC#) 0.00 10\S\3/uL 0.00-0.01 NEUTROPH % (test code = NE%) 63.9 % 35.0-73.0 LYMPH % (test code = LY%) 23.1 % 20.0-55.0 MONO % (test code = MO%) 10.4 % 2.5-10.0 H EOSINOPH % (test code = EO%) 1.1 % 0.0-5.0 BASOPHIL % (test code = BA%) 0.4 % 0.0-2.0 IG % (test code = IG%) 1.1 % 0.0-0.8 H NRBC% (test code = NRBC%) 0.0 % 0.0-0.2 MANDIFF (test code = WMDIFF) NO NO RBC MORPH (test code = NORMAL WRBCMOR) AMNIOTEST NEHEMIAH2017-08-26 00:31:00 Test Item Value Reference Range Interpretation Comments AMNIO PH (test 5.0 code = AMNIOTEST) AMNIO PH (test INTERPRETATION OF RESULTS code = AMNIOTESTH) 5.0 --- 6.0 Intact Amniotic Membrane 6.5 --- >=7.5 Possible Ruptured Membrane -- FERN TEST NEHEMIAH2017-08-26 00:31:00 Test Item Value Reference Range Interpretation Comments FERN TEST (test code = FERNING IS ABSENT FERN) URINALYSIS WITH MICRO *NEHEMIAH*2017-08-21 14:02:00 Test Item Value Reference Range Interpretation Comments COLOR (test code = COLU) YELLOW YELLOW CLARITY (test code = CLA) CLEAR CLEAR GLUCOSE UR (test code = UA GLUCOSE) NEGATIVE NEGATIVE BILI UR (test code = BILE) NEGATIVE NEGATIVE KETONES UR (test code = LEIDY) NEGATIVE NEGATIVE SP GRAVITY (test code = SPGR) 1.020 1.005-1.030 PH UR (test code = PH) 6.5 4.5-8.0 PROTEIN UR (test code = PU) TRACE NEGATIVE A UROBIL UR (test code = UROQ) 0.2 EU/dL 0.2-1.0 NITRITE UR (test code = NITRITE) NEGATIVE NEGATIVE BLOOD UR (test code = UA BLOOD) 1+ NEGATIVE A LEUK ES UR (test code = LEUK) NEGATIVE NEGATIVE WBC UR (test code = UWBC) 5 /HPF 0-5 RBC UR (test code = URBC) 3 /HPF 0-2 H EPITH UR (test code = UEPC) FEW /LPF FEW BACTERIA UR (test code = UBACT) FEW /HPF NONE A CAST UR (test code = CAST) /LPF NONE CRYSTAL UR (test code = CRYU) / LPF NONE MUCUS UR (test code = MUC) / HPF NONE AMORPH UR (test code = LUCAS) / HPF NONE TRICH UR (test code = UTRICH) /HPF NONE YEAST UR (test code = UY) /HPF NONE SPERM UR (test code = USPERM) /HPF NONE URINALYSIS WITH MICRO *WW*2017-08-14 18:39:00 Test Item Value Reference Range Interpretation Comments COLOR (test code = COLU) YELLOW YELLOW CLARITY (test code = CLA) CLEAR CLEAR GLUCOSE UR (test code = UA GLUCOSE) NEGATIVE NEGATIVE BILI UR (test code = BILE) NEGATIVE NEGATIVE KETONES UR (test code = LEIDY) 1+ NEGATIVE A SP GRAVITY (test code = SPGR) 1.025 1.005-1.030 PH UR (test code = PH) 6.0 4.5-8.0 PROTEIN UR (test code = PU) TRACE NEGATIVE A UROBIL UR (test code = UROQ) 0.2 EU/dL 0.2-1.0 NITRITE UR (test code = NITRITE) NEGATIVE NEGATIVE BLOOD UR (test code = UA BLOOD) NEGATIVE NEGATIVE LEUK ES UR (test code = LEUK) NEGATIVE NEGATIVE WBC UR (test code = UWBC) 0 /HPF 0-5 RBC UR (test code = URBC) 0 /HPF 0-2 EPITH UR (test code = UEPC) FEW /LPF FEW BACTERIA UR (test code = UBACT) NONE /HPF NONE CAST UR (test code = CAST) /LPF NONE CRYSTAL UR (test code = CRYU) / LPF NONE MUCUS UR (test code = MUC) / HPF NONE AMORPH UR (test code = LUCAS) / HPF NONE TRICH UR (test code = UTRICH) /HPF NONE YEAST UR (test code = UY) /HPF NONE SPERM UR (test code = USPERM) /HPF NONE PRO TIME AND PTT *WW*2017-08-14 18:08:00 Test Item Value Reference Range Interpretation Comments PT (test code = 11.7 s 9.8-13.6 TT) INR (test code = 1.0 INR) INRH (test code = SUGGESTED THERAPEUTIC INRH) RANGE FOR INR: 2.5 - 3.5 For Patients with Prosthetic Valves or Patients with recurrent Thromboembolic Events 2.0 - 3.0 For Most Other Applications PTT (test code = 21.5 s 20.2-38.0 PTT) PTTH (test code = To monitor the PTTH) effectiveness of heparin, we offer the Anti-Xa (Heparin Assay). It can be used for either unfractionated or LMW Heparin. Order Code is ANTI-XA FIBRINOGEN QUANTITATIVE *WW*2017-08-14 18:02:00 Test Item Value Reference Range Interpretation Comments FIBRINOGEN (test code = FIB) 833 mg/dL 260-480 H LIVER PROFILE WW2017-08-14 18:00:00 Test Item Value Reference Range Interpretation Comments BILI TOTAL (test code = 11A) 0.2 mg/dL 0.2-1.0 BILI DIRCT (test code = 12A) <0.1 mg/dL 0.0-0.2 PROTEIN (test code = 07D) 6.5 g/dL 6.4-8.2 ALBUMIN (test code = 08D) 2.6 g/dL 3.5-4.8 L GLOBULIN (test code = GLB) 3.9 g/dL 1.5-3.8 H ALB/GLOB (test code = AGRR) 0.7 1.0-2.6 L ALK PHOS (test code = 35A) 92 IU/L 42-121 AST (test code = 30A) 17 IU/L <=42 ALT (test code = 31A) 20 IU/L <=78 LDH-LACTIC DEHYDROGENASE 2017-08-14 17:58:00 Test Item Value Reference Range Interpretation Comments LDH (test code = 33A) 121 IU/L 100-190 BASIC METABOLIC PANEL 2017-08-14 17:43:00 Test Item Value Reference Range Interpretation Comments GLUCOSE (test code = 06D) 111 mg/dL 75-100 H SODIUM (test code = 01A) 138 mmol/L 136-145 POTASSIUM (test code = 01B) 3.5 mmol/L 3.6-5.1 L CHLORIDE (test code = 04A) 106 mmol/L 98-107 CO2 (test code = 02A) 20 mmol/L 22-32 L ANION GAP (test code = ANG) 15.9 mmol/L BUN (test code = 05D) 8 mg/dL 7-18 CREATININE (test code = 03E) 0.7 mg/dL 0.4-1.1 BUN/CREA (test code = BCR) 12 12-20 CALCIUM (test code = 09D) 8.4 mg/dL 8.3-9.5 URIC ACID 2017-08-14 17:43:00 Test Item Value Reference Range Interpretation Comments URIC ACID (test code = 41A) 4.6 mg/dL 2.6-6.0 CBC (INCLUDES AUTOMATED DIFFERENTIAL)*[id number] 17:37:00 Test Item Value Reference Range Interpretation Comments WBC (test code = WBC) 9.6 10\S\3/uL 4.5-11.0 HGB (test code = HBG) 11.8 g/dL 12.0-15.5 L HCT (test code = HCT) 36.1 % 35.0-44.0 MCV (test code = MCV) 94.3 fL 81.0-99.0 MCH (test code = MCH) 30.8 pg 27.0-31.0 MCHC (test code = MCHC) 32.7 g/dL 32.0-36.0 RDW (test code = RDW) 14.1 % 11.5-14.5 PLT (test code = PLT) 299 10\S\3/uL 130-400 MPV (test code = MPV) 9.4 fL 9.4-12.4 NEUTROP # (test code = NE#) 6.6 10\S\3/uL 1.6-8.0 LYMPH # (test code = LY#) 2.1 10\S\3/uL 1.1-3.5 MONOCYTE # (test code = MO#) 0.7 10\S\3/uL 0.0-1.1 EOSINOPH # (test code = EO#) 0.1 10\S\3/uL 0.0-0.7 BASOPHIL # (test code = BA#) 0.0 10\S\3/uL 0.0-0.3 IG # (test code = IG#) 0.08 10\S\3/uL 0.00-0.06 H NRBC # (test code = NRBC#) 0.00 10\S\3/uL 0.00-0.01 NEUTROPH % (test code = NE%) 68.2 % 35.0-73.0 LYMPH % (test code = LY%) 22.2 % 20.0-55.0 MONO % (test code = MO%) 7.4 % 2.5-10.0 EOSINOPH % (test code = EO%) 1.1 % 0.0-5.0 BASOPHIL % (test code = BA%) 0.3 % 0.0-2.0 IG % (test code = IG%) 0.8 % 0.0-0.8 NRBC% (test code = NRBC%) 0.0 % 0.0-0.2 MANDIFF (test code = WMDIFF) NO NO RBC MORPH (test code = NORMAL WRBCMOR) URINE [id number] 08:29:00 Test Item Value Reference Range Interpretation Comments Culture Observations THREE OR MORE SPECIES (test code = COB1) OF BACTERIA ISOLATED. PROBABLE CONTAMINATION. Culture Observations IDENTIFICATION AND (test code = COB17) SUSCEPTIBILITY NOT INDICATED. RECOLLECTION RECOMMENDED URINALYSIS WITH MICRO *WW*2017-07-28 13:02:00 Test Item Value Reference Range Interpretation Comments COLOR (test code = COLU) YELLOW YELLOW CLARITY (test code = CLA) SLT HAZY CLEAR A GLUCOSE UR (test code = UA NEGATIVE NEGATIVE GLUCOSE) BILI UR (test code = BILE) NEGATIVE NEGATIVE KETONES UR (test code = LEIDY) NEGATIVE NEGATIVE SP GRAVITY (test code = SPGR) 1.020 1.005-1.030 PH UR (test code = PH) 7.0 4.5-8.0 PROTEIN UR (test code = PU) NEGATIVE NEGATIVE UROBIL UR (test code = UROQ) 0.2 EU/dL 0.2-1.0 NITRITE UR (test code = NEGATIVE NEGATIVE NITRITE) BLOOD UR (test code = UA BLOOD) NEGATIVE NEGATIVE LEUK ES UR (test code = LEUK) 1+ NEGATIVE A WBC UR (test code = UWBC) 20 /HPF 0-5 H RBC UR (test code = URBC) 0 /HPF 0-2 EPITH UR (test code = UEPC) MODERATE /LPF FEW A BACTERIA UR (test code = UBACT) MODERATE /HPF NONE A CAST UR (test code = CAST) /LPF NONE CRYSTAL UR (test code = CRYU) / LPF NONE MUCUS UR (test code = MUC) / HPF NONE AMORPH UR (test code = LUCAS) / HPF NONE TRICH UR (test code = UTRICH) /HPF NONE YEAST UR (test code = UY) /HPF NONE SPERM UR (test code = USPERM) /HPF NONE URINE [id number] 08:10:00 Test Item Value Reference Range Interpretation Comments Culture Observations THREE OR MORE SPECIES (test code = COB1) OF BACTERIA ISOLATED. PROBABLE CONTAMINATION. Culture Observations IDENTIFICATION AND (test code = COB17) SUSCEPTIBILITY NOT INDICATED. RECOLLECTION RECOMMENDED U/S >14 WEEKS*WW*2017-05-18 08:56:49LOCATION CODE: [id number] ULTRASOUND COMPLETEHISTORY: Pelvic and perineal painCOMPARISON: OB ultrasound dated 05/06/17INDINGS: Real-time ultrasound of the fetus was obtained, which shows asingle, viable IUP in cephalic position. The placenta is posterior and grade0. The amniotic fluid volume appears normal. RENATO is 14.1. The various ultrasonic measurements show: BPD - 4.1 cm = 18 weeks 3 days HC - 15.4 cm = 18 weeks 3 days AC - 12.8 cm = 18 weeks 3 days FL - 2.5 cm = 17 weeks 4 days Composition gestational age 18 weeks 2 days which is in keeping with age by LMPof 18 weeks 1 day. Estimated fetalweight: 224 g, 42 percentile. The various ratios are normal. brain, spine, heart, stomach,kidneys, bladder and three-vessel cord appear normal. heart rate is 152bpm. Cervix is not well seen.IMPRESSION:1. Single, viable intrauterine in cephalic presentation.2. No acute abnormalities. Specifically, no evidence of a central abruption orprevia.3. Normal RENATO.U/S KIDNEY (RENAL)*WW*2017-05-18 08:51:56 LOCATION CODE: [id number] ULTRASOUND.HISTORY: Flank painCOMPARISON: None availableTECHNIQUE: Real-time ultrasound of the kidneys was obtained in transverse andlongitudinal planes.FINDINGS: The kidneys are of normal size, shape, and position. Kidneys show normalechogenicity without evidence of focal mass lesion, hydronephrosis,nephrocalcinosis, or perinephric fluid. The left kidney measures 10.7 x 6 x 5.1cm and the right kidney measures 11.3 x 4.8 x 6 cm. Renal arteries are patent bilaterally with normal resistive indices of 0.5bilaterally.Incidental note is a diffusely echogenic liver suggesting underlying steatosis.Visualized portions of the urinary bladder appear within normal limits.IMPRESSION: 1. No sonographic evidence of renal calculi or hydronephrosis.2. Incidental note is a diffusely echogenic liver suggesting underlyingsteatosis.AMYLASE AND LIPASE *WW*2017-05-18 07:44:00 Test Item Value Reference Range Interpretation Comments AMYLASE (test code = 10A) 53 U/L 28-100 LIPASE (test code = 60A) 206 IU/L 73-393 COMPREHENSIVE METABOLIC MONTANO *WW*2017-05-18 07:44:00 Test Item Value Reference Range Interpretation Comments GLUCOSE (test code = 06D) 97 mg/dL 75-100 SODIUM (test code = 01A) 137 mmol/L 136-145 POTASSIUM (test code = 01B) 4.0 mmol/L 3.6-5.1 CHLORIDE (test code = 04A) 104 mmol/L 98-107 CO2 (test code = 02A) 22 mmol/L 22-32 ANION GAP (test code = ANG) 15.0 mmol/L BUN (test code = 05D) 8 mg/dL 7-18 CREATININE (test code = 03E) 0.6 mg/dL 0.4-1.1 BUN/CREA (test code = BCR) 14 12-20 CALCIUM (test code = 09D) 8.5 mg/dL 8.3-9.5 BILI TOTAL (test code = 11A) 0.2 mg/dL 0.2-1.0 PROTEIN (test code = 07D) 7.1 g/dL 6.4-8.2 ALBUMIN (test code = 08D) 2.9 g/dL 3.5-4.8 L GLOBULIN (test code = GLB) 4.2 g/dL 1.5-3.8 H ALB/GLOB (test code = AGRR) 0.7 1.0-2.6 L ALK PHOS (test code = 35A) 59 IU/L 42-121 AST (test code = 30A) 10 IU/L <=42 ALT (test code = 31A) 15 IU/L <=78 CBC (INCLUDES AUTOMATED DIFFERENTIAL)*[id number] 07:29:00 Test Item Value Reference Range Interpretation Comments WBC (test code = WBC) 10.0 10\S\3/uL 4.5-11.0 RBC (test code = RBC) 3.89 10\S\6/uL 4.30-5.70 L HGB (test code = HBG) 12.3 g/dL 12.0-15.5 HCT (test code = HCT) 37.8 % 35.0-44.0 MCV (test code = MCV) 97.2 fL 81.0-99.0 MCH (test code = MCH) 31.6 pg 27.0-31.0 H MCHC (test code = MCHC) 32.5 g/dL 32.0-36.0 RDW (test code = RDW) 13.2 % 11.5-14.5 PLT (test code = PLT) 343 10\S\3/uL 130-400 MPV (test code = MPV) 9.0 fL 9.4-12.4 L NEUTROP # (test code = NE#) 6.5 10\S\3/uL 1.6-8.0 LYMPH # (test code = LY#) 2.2 10\S\3/uL 1.1-3.5 MONOCYTE # (test code = MO#) 0.9 10\S\3/uL 0.0-1.1 EOSINOPH # (test code = EO#) 0.2 10\S\3/uL 0.0-0.7 BASOPHIL # (test code = BA#) 0.1 10\S\3/uL 0.0-0.3 IG # (test code = IG#) 0.13 10\S\3/uL 0.00-0.06 H NRBC # (test code = NRBC#) 0.00 10\S\3/uL 0.00-0.01 NEUTROPH % (test code = NE%) 65.4 % 35.0-73.0 LYMPH % (test code = LY%) 22.1 % 20.0-55.0 MONO % (test code = MO%) 8.5 % 2.5-10.0 EOSINOPH % (test code = EO%) 2.1 % 0.0-5.0 BASOPHIL % (test code = BA%) 0.6 % 0.0-2.0 IG % (test code = IG%) 1.3 % 0.0-0.8 H NRBC% (test code = NRBC%) 0.0 % 0.0-0.2 MANDIFF (test code = WMDIFF) NO NO RBC MORPH (test code = NORMAL WRBCMOR) URINALYSIS WITH MICRO *WW*2017-05-18 07:18:00 Test Item Value Reference Range Interpretation Comments COLOR (test code = COLU) YELLOW YELLOW CLARITY (test code = CLA) SLT HAZY CLEAR A GLUCOSE UR (test code = UA GLUCOSE) NEGATIVE NEGATIVE BILI UR (test code = BILE) NEGATIVE NEGATIVE KETONES UR (test code = LEIDY) NEGATIVE NEGATIVE SP GRAVITY (test code = SPGR) 1.020 1.005-1.030 PH UR (test code = PH) 6.0 4.5-8.0 PROTEIN UR (test code = PU) NEGATIVE NEGATIVE UROBIL UR (test code = UROQ) 0.2 EU/dL 0.2-1.0 NITRITE UR (test code = NITRITE) NEGATIVE NEGATIVE BLOOD UR (test code = UA BLOOD) NEGATIVE NEGATIVE LEUK ES UR (test code = LEUK) 1+ NEGATIVE A WBC UR (test code = UWBC) 5 /HPF 0-5 RBC UR (test code = URBC) 0 /HPF 0-2 EPITH UR (test code = UEPC) FEW /LPF FEW BACTERIA UR (test code = UBACT) NONE /HPF NONE CAST UR (test code = CAST) /LPF NONE CRYSTAL UR (test code = CRYU) / LPF NONE MUCUS UR (test code = MUC) / HPF NONE AMORPH UR (test code = LUCAS) / HPF NONE TRICH UR (test code = UTRICH) /HPF NONE YEAST UR (test code = UY) /HPF NONE SPERM UR (test code = USPERM) /HPF NONE U/S KIDNEY (RENAL)2017-05-09 22:06:16CLINICAL HISTORY: Renal calculus. Abdominal pain.LOCATION: D4.FINDINGS: Real-time grayscale sonographic evaluation is performed of thekidneys with limited color Doppler evaluation. No comparison studies. Thekidneys demonstrate normal cortical echogenicity. There is normal corticalthickness bilaterally. The right kidney measures 10.9 cm and the left kidneymeasures 10.2 cm. No masses or cystic lesions identified. No hydronephrosisevident . No free fluid noted. There is a small volume within the bladder.IMPRESSION:1. Negative renal ultrasound examination.COMPREHENSIVE METABOLIC MONTANO 2017-05-09 21:04:00 Test Item Value Reference Range Interpretation Comments GLUCOSE (test code = 06D) 87 mg/dL 75-100 SODIUM (test code = 01A) 138 mmol/L 136-145 POTASSIUM (test code = 01B) 4.0 mmol/L 3.6-5.1 CHLORIDE (test code = 04A) 106 mmol/L 98-107 CO2 (test code = 02A) 19 mmol/L 22-32 L ANION GAP (test code = ANG) 17.0 mmol/L BUN (test code = 05D) 9 mg/dL 7-18 CREATININE (test code = 03E) 0.6 mg/dL 0.4-1.1 BUN/CREA (test code = BCR) 15 12-20 CALCIUM (test code = 09D) 8.5 mg/dL 8.3-9.5 BILI TOTAL (test code = 11A) 0.2 mg/dL 0.2-1.0 PROTEIN (test code = 07D) 6.9 g/dL 6.4-8.2 ALBUMIN (test code = 08D) 2.9 g/dL 3.5-4.8 L GLOBULIN (test code = GLB) 4.0 g/dL 1.5-3.8 H ALB/GLOB (test code = AGRR) 0.7 1.0-2.6 L ALK PHOS (test code = 35A) 61 IU/L 42-121 AST (test code = 30A) 14 IU/L <=42 ALT (test code = 31A) 15 IU/L <=78 CBC (INCLUDES AUTOMATED DIFFERENTIAL)*[id number] 20:46:00 Test Item Value Reference Range Interpretation Comments WBC (test code = WBC) 10.2 10\S\3/uL 4.5-11.0 RBC (test code = RBC) 3.86 10\S\6/uL 4.30-5.70 L HGB (test code = HBG) 12.1 g/dL 12.0-15.5 HCT (test code = HCT) 36.4 % 35.0-44.0 MCV (test code = MCV) 94.3 fL 81.0-99.0 MCH (test code = MCH) 31.3 pg 27.0-31.0 H MCHC (test code = MCHC) 33.2 g/dL 32.0-36.0 RDW (test code = RDW) 13.1 % 11.5-14.5 PLT (test code = PLT) 370 10\S\3/uL 130-400 MPV (test code = MPV) 8.7 fL 9.4-12.4 L NEUTROP # (test code = NE#) 6.0 10\S\3/uL 1.6-8.0 LYMPH # (test code = LY#) 3.1 10\S\3/uL 1.1-3.5 MONOCYTE # (test code = MO#) 0.8 10\S\3/uL 0.0-1.1 EOSINOPH # (test code = EO#) 0.2 10\S\3/uL 0.0-0.7 BASOPHIL # (test code = BA#) 0.0 10\S\3/uL 0.0-0.3 IG # (test code = IG#) 0.08 10\S\3/uL 0.00-0.06 H NRBC # (test code = NRBC#) 0.00 10\S\3/uL 0.00-0.01 NEUTROPH % (test code = NE%) 58.8 % 35.0-73.0 LYMPH % (test code = LY%) 30.0 % 20.0-55.0 MONO % (test code = MO%) 8.3 % 2.5-10.0 EOSINOPH % (test code = EO%) 1.8 % 0.0-5.0 BASOPHIL % (test code = BA%) 0.3 % 0.0-2.0 IG % (test code = IG%) 0.8 % 0.0-0.8 NRBC% (test code = NRBC%) 0.0 % 0.0-0.2 MANDIFF (test code = WMDIFF) NO NO RBC MORPH (test code = NORMAL WRBCMOR) URINALYSIS *WW*2017-05-09 20:45:00 Test Item Value Reference Range Interpretation Comments COLOR (test code = COLU) YELLOW YELLOW CLARITY (test code = CLA) CLEAR CLEAR GLUCOSE UR (test code = UA GLUCOSE) NEGATIVE NEGATIVE BILI UR (test code = BILE) NEGATIVE NEGATIVE KETONES UR (test code = LEIDY) NEGATIVE NEGATIVE SP GRAVITY (test code = SPGR) 1.025 1.005-1.030 PH UR (test code = PH) 6.0 4.5-8.0 PROTEIN UR (test code = PU) NEGATIVE NEGATIVE UROBIL UR (test code = UROQ) 0.2 EU/dL 0.2-1.0 NITRITE UR (test code = NITRITE) NEGATIVE NEGATIVE BLOOD UR (test code = UA BLOOD) NEGATIVE NEGATIVE LEUK ES UR (test code = LEUK) NEGATIVE NEGATIVE AUAM (test code = WAUAM) NO NO US > 14 [id number] 12:33:17OBSTETRIC ULTRASOUND Location code: [id number] HISTORY: [id number]: anatomy studyComparison: 05/06/2017GA by first US: 17 weeks and 2 daysEDD by 1st ultrasound: 10/13/2017GA by today's US: 17 weeks and 0 daysFindings:There is a single intrauterine in without presentation. Estimatedfetal heart rate is 151 beats per minute. Amniotic fluid index is 13.0 cm. Theplacenta is posterior with grade 1 changes. There is no evidence of previa orabruption. The cervix is closed and measures 4.0 cm. The maternal adnexa areunremarkable. Approximate sonographic age is 17 weeks 0 days based upon the following:BPD 3.7 cm 17 weeks 0 daysHC 13.5 cm 17 weeks 0 daysAC 11.2 cm 17 weeks 0 dayFL 2.3 cm 17 weeks 0 days ratios are within normal limits. weight estimateWeight: 177 gramsAnatomic survey reveals no abnormality of the intracranial contents,four-chamber heart, stomach, bilateral kidneys, urinary bladder, 3 vessel cord,cord insertion, spine, and extremities.IMPRESSION: 1. Single intrauterine in cephalic presentation with an approximatesonographic age of 17 weeks and 0 days. 2. No abnormality identified or significant change.U/S >14 WEEKS*NEHEMIAH*2017-05-06 15:42:12OBSTETRIC ULTRASOUND Location code: [id number] HISTORY: R10.2: PELVIC AND PERINEAL PAINGA by today'Mora: 17 weeks and 1 dayEDD by today's ultrasound: 10/13/2017Findings:There is a single intrauterine pr egnancy in cephalic presentation. Estimatedfetal heart rate is 145 beats per minute. Amniotic fluid index is 15.5 cm. Theplacenta is posterior/fundal with grade 0 changes. There is no evidence ofpreviaor abruption. The cervix is closed and measures 3.5 cm. The maternaladnexa are unremarkable. Approximate sonographic age is 17 weeks 1 day based upon the following:BPD 3.6 cm 17 weeks 0 daysHC 3.8 cm 17 weeks 1 dayAC 11.5 cm 17 weeks 2 daysFL 2.3 cm 16 weeks 6 days ratios are within normal limits. weight estimateWeight: 182 gramsAnatomic survey reveals no abnormality of the intracranial contents,four- chamber heart, stomach, bilateral kidneys, urinary bladder, 3 vessel cord,cord insertion,spine, and extremities.IMPRESSION: 1. Single intrauterine in cephalic presentation with anapproximatesonographic age of 17 weeks and 1 day. 2. No abnormality identified.BETA HCG QUANTITATIVE SERUM *NEHEMIAH*2017-05-06 15:10:00 Test Item Value Reference Range Interpretation Comments BHCG QUANT (test 6496.00 mIU/mL code = A17) BHCGQ (test code = QUANTITATIVE BHCG BHCQ) RESULT INTERPRETATION --- APPROXIMATE APPROXIMATE GESTATIONAL AGE HCG RANGE (WEEKS) (mIU/mL) - 0.2 - 1 5 - 50 1 - 2 50 - 500 2 - 3 100 - 5,000 3 - 4 500 - 10,000 4 - 5 1,000 - 50,000 5 - 6 10,000 - 100,000 6 - 8 15,000 - 200,000 8 - 12 10,000 - 100,000 --- CBC (INCLUDES AUTOMATED DIFFERENTIAL)*[id number] 14:32:00 Test Item Value Reference Range Interpretation Comments WBC (test code = WBC) 10.7 10\S\3/uL 4.5-11.0 RBC (test code = RBC) 3.97 10\S\6/uL 4.30-5.70 L HGB (test code = HBG) 12.6 g/dL 12.0-15.5 HCT (test code = HCT) 37.6 % 35.0-44.0 MCV (test code = MCV) 94.7 fL 81.0-99.0 MCH (test code = MCH) 31.7 pg 27.0-31.0 H MCHC (test code = MCHC) 33.5 g/dL 32.0-36.0 RDW (test code = RDW) 12.7 % 11.5-14.5 PLT (test code = PLT) 395 10\S\3/uL 130-400 MPV (test code = MPV) 8.8 fL 9.4-12.4 L NEUTROP # (test code = NE#) 7.1 10\S\3/uL 1.6-8.0 LYMPH # (test code = LY#) 2.4 10\S\3/uL 1.1-3.5 MONOCYTE # (test code = MO#) 1.0 10\S\3/uL 0.0-1.1 EOSINOPH # (test code = EO#) 0.1 10\S\3/uL 0.0-0.7 BASOPHIL # (test code = BA#) 0.1 10\S\3/uL 0.0-0.3 IG # (test code = IG#) 0.08 10\S\3/uL 0.00-0.06 H NRBC # (test code = NRBC#) 0.00 10\S\3/uL 0.00-0.01 NEUTROPH % (test code = NE%) 66.0 % 35.0-73.0 LYMPH % (test code = LY%) 22.5 % 20.0-55.0 MONO % (test code = MO%) 9.0 % 2.5-10.0 EOSINOPH % (test code = EO%) 1.3 % 0.0-5.0 BASOPHIL % (test code = BA%) 0.5 % 0.0-2.0 IG % (test code = IG%) 0.7 % 0.0-0.8 NRBC% (test code = NRBC%) 0.0 % 0.0-0.2 MANDIFF (test code = WMDIFF) NO NO RBC MORPH (test code = NORMAL WRBCMOR) URINALYSIS *WW*2017-05-06 14:32:00 Test Item Value Reference Range Interpretation Comments COLOR (test code = COLU) YELLOW YELLOW CLARITY (test code = CLA) CLEAR CLEAR GLUCOSE UR (test code = UA GLUCOSE) NEGATIVE NEGATIVE BILI UR (test code = BILE) NEGATIVE NEGATIVE KETONES UR (test code = LEIDY) NEGATIVE NEGATIVE SP GRAVITY (test code = SPGR) <=1.005 1.005-1.030 PH UR (test code = PH) 7.0 4.5-8.0 PROTEIN UR (test code = PU) NEGATIVE NEGATIVE UROBIL UR (test code = UROQ) 0.2 EU/dL 0.2-1.0 NITRITE UR (test code = NITRITE) NEGATIVE NEGATIVE BLOOD UR (test code = UA BLOOD) NEGATIVE NEGATIVE LEUK ES UR (test code = LEUK) NEGATIVE NEGATIVE AUAM (test code = WAUAM) NO NO
[2022-07-04 11:29] LABS: Absolute Lymphocytes (CBC) 2.9 K/uL (0.7-4.9); Hematocrit 45.1 % (36.0-45.0); Lymphocytes % 39.7 % (15.3-44.8); MCV 93.8 fL (80-100)
[2022-07-04] MEDS ORDERED: dexAMETHasone 10 MG/ML VIAL ONE (11:31)
[2022-07-04] MEDS ORDERED: NA CHLORIDE 0.9% 1,000 ML ONE (11:31)
[2022-07-04] MEDS ORDERED: FAMOTIDINE 20 MG/2 ML VIAL IV ONE (11:31)
[2022-07-04 11:50] LABS: Albumin 4.2 g/dL (3.4-5.0); Bilirubin Total 0.4 mg/dL (0.2-1.0); Potassium 3.1 mEq/L (3.5-5.1); Protein, Total 7.9 g/dL (6.4-8.2)
[2022-07-04] MEDS ORDERED: KCL 20 MEQ/100 mL IVPB 100 ML IV ONE (12:06)
[2022-07-04] MEDS ORDERED: NA CHLORIDE 0.9% 500 ML ONE (12:06)
[2022-07-04 12:49] LABS: Specific Gravity 1.016 (1.005-1.030); Urine Bilirubin NEGATIVE (Negative); Urine Blood 1+ (Negative); Urine Clarity Clear (Clear); Urine Color Yellow (Yellow); Urine Glucose NEGATIVE (Negative); Urine Protein NEGATIVE (Negative); Urine Urobilinogen Normal (Normal)
--- NOTE | 2022-07-04 14:23 | ER ---
Nurse's Notes [facility] Name: Christine Purcell Age: 41 yrs Sex: Female : 1980 Arrival Date: 07/04/2022 Time: 10:47 Bed 7 Private MD: Diagnosis: Irritable bowel syndrome with diarrhea Presentation: 07/04 10:58 Chief complaint: Patient states: "I was diagnosed with crohn's the end of last year". aa5 Pt reports abd pain, diarrhea, and vomiting that began 1 month ago. Ebola Screen: Patient denies travel to an Ebola-affected area in the 21 days before illness onset. Initial Sepsis Screen: Does the patient meet any 2 criteria? No. Patient's initial sepsis screen is negative. Does the patient have a suspected source of infection? No. Patient's initial sepsis screen is negative. Risk Assessment: Do you want to hurt yourself or someone else? Patient reports no desire to harm self or others. Onset of symptoms was June 2022. 10:58 Acuity: NEHA 3 aa5 10:58 Method Of Arrival: Ambulatory aa5 10:58 Coronavirus screen: diarrhea, nausea, vomiting. aa5 Triage Assessment: 11:00 General: Appears uncomfortable, Behavior is cooperative, appropriate for age, anxious. bp Pain: Complains of pain in abdomen. EENT: No deficits noted. Neuro: No deficits noted. Cardiovascular: No deficits noted. Respiratory: No deficits noted. GI: Reports diarrhea, nausea, vomiting. : No signs and/or symptoms were reported regarding the genitourinary system. Derm: No deficits noted. Musculoskeletal: No deficits noted. Historical: - Allergies: 11:01 Benadryl; aa5 11:01 Toradol; aa5 - Home Meds: 11:15 Keppra 2,000mg Oral tablet once [Active]; Dicyclomine Oral [Active]; Ambien Oral aa5 [Active]; Lorazepam Oral [Active]; Topamax Oral [Active]; Hyzaar Oral [Active]; multivitamin [Active]; - PMHx: 11:01 Crohn's disease; aa5 11:04 Migraine; epilepsy; Hypertensive disorder; IBS; aa5 - PSHx: 11:04 ; Cholecystectomy; aa5 - Immunization history:: Adult Immunizations unknown. - Social history:: Smoking status: Patient denies any tobacco usage or history of. Screenin:00 [facility] ED Fall Risk Assessment (Adult) History of falling in the last 3 months, bp including since admission No falls in past 3 months (0 pts). Abuse screen: Denies threats or abuse. Denies injuries from another. Nutritional screening: No deficits noted. Tuberculosis screening: No symptoms or risk factors identified. Assessment: 11:00 General: SEE TRIAGE NOTE. bp Vital Signs: 10:58 BP 114 / 74; Pulse 82; Resp 16 S; Temp 97.2(TE); Pulse Ox 99% on R/A; Weight 92.99 kg aa5 (R); Height 5 ft. 3 in. (R); 12:28 BP 94 / 68; Pulse 60; Resp 15; Pulse Ox 92% ; jl7 14:16 BP 100 / 63; Pulse 90; Resp 15; Pulse Ox 94% ; jl7 10:58 Body Mass Index 36.31 (92.99 kg, 160.02 cm) aa5 ED Course: 10:47 Patient arrived in ED. mr 10:54 Sandeep Cavanaugh MD is Attending Physician. jr11 10:56 Kathia Lewis FNP-C is PHCP. snw 10:58 Arm band placed on. aa5 10:59 Triage completed. aa5 11:00 Patient has correct armband on for positive identification. Bed in low position. Call bp light in reach. Side rails up X2. 11:08 Yony Espinoza, RN is Primary Nurse. bp 12:28 Urine collected: clean catch specimen, clear. jl7 14:45 No provider procedures requiring assistance completed. IV discontinued, intact, bp bleeding controlled, No redness/swelling at site. Pressure dressing applied. Administered Medications: 11:30 Drug: NS 0.9% IV 1000 ml Route: IV; Rate: 1 bolus; Site: right antecubital; bp 14:45 Follow up: IV Status: Completed infusion; IV Intake: 1000ml bp 11:30 Drug: Famotidine IVP 20 mg Route: IVP; Site: right antecubital; bp 14:44 Follow up: Response: No adverse reaction bp 11:30 Drug: Decadron - Dexamethasone IVP 10 mg Route: IVP; Site: right antecubital; bp 14:44 Follow up: Response: No adverse reaction bp 12:27 Drug: Potassium Chloride IV 20 mEq Route: IV; Rate: calculated rate; Site: right bp antecubital; 14:45 Follow up: IV Status: Completed infusion; IV Intake: 100ml bp Medication: 11:00 VIS not applicable for this client. bp Intake: 14:45 IV: 1000ml; Total: 1000ml. bp 14:45 IV: 100ml; Total: 1100ml. bp Outcome: 14:23 Discharge ordered by . snw 14:45 Discharged to home ambulatory, with family. bp 14:45 Condition: stable 14:45 Discharge instructions given to patient, family, Instructed on discharge instructions, follow up and referral plans. medication usage, Demonstrated understanding of instructions, follow-up care, medications, Prescriptions given X 1. 14:46 Patient left the ED. bp Signatures: Kathia Lewis, WIPING CLOTH CUTTER-C WIPING CLOTH CUTTER-Csnw DavidJocelyn mr Serra, Tressa, RN RN aa5 Karen Shah RN RN jl7 Yony Espinoza RN RN bp aSndeep Cavanaugh MD MD [email or web address] Corrections: (The following items were deleted from the chart) 11:00 10:58 Chief complaint: Patient states: "I was diagnosed with chron's the end of last aa5 year" aa5 11:01 10:58 Chief complaint: Patient states: "I was diagnosed with chron's the end of last aa5 year". Pt reports abd pain, diarrhea, and vomiting that began 1 month ago. aa5 11:03 11:01 Allergies: No Known Allergies; aa5 aa5
--- NOTE | 2022-07-04 14:23 | EDPHYS ---
Physician Documentation [facility] Name: Christine Purcell Age: 41 yrs Sex: Female : 1980 Arrival Date: 07/04/2022 Time: 10:47 Bed 7 Private MD: DG Physician Sandeep Cavanaugh HPI: 07/04 11:18 This 41 yrs old Female presents to ER via Ambulatory with complaints of crohn's flare snw up. 11:18 Onset: The symptoms/episode began/occurred acutely, 1 month(s) ago, and became snw persistent. Associated signs and symptoms: Pertinent positives: abdominal pain, diarrhea, vomiting. The patient has experienced similar episodes in the past, multiple times, chronically. changed GI from [facility] to someone in [place]. Historical: - Allergies: 11:01 Benadryl; aa5 11:01 Toradol; aa5 - Home Meds: 11:15 Keppra 2,000mg Oral tablet once [Active]; Dicyclomine Oral [Active]; Ambien Oral aa5 [Active]; Lorazepam Oral [Active]; Topamax Oral [Active]; Hyzaar Oral [Active]; multivitamin [Active]; - PMHx: 11:01 Crohn's disease; aa5 11:04 Migraine; epilepsy; Hypertensive disorder; IBS; aa5 - PSHx: 11:04 ; Cholecystectomy; aa5 - Immunization history:: Adult Immunizations unknown. - Social history:: Smoking status: Patient denies any tobacco usage or history of. ROS: 11:17 Constitutional: Negative for fever, chills, and weight loss, Eyes: Negative for injury, snw pain, redness, and discharge, ENT: Negative for injury, pain, and discharge, Neck: Negative for injury, pain, and swelling, Cardiovascular: Negative for chest pain, palpitations, and edema, Respiratory: Negative for shortness of breath, cough, wheezing, and pleuritic chest pain, Back: Negative for injury and pain, : Negative for injury, bleeding, discharge, and swelling, MS/Extremity: Negative for injury and deformity, Skin: Negative for injury, rash, and discoloration, Neuro: Negative for headache, weakness, numbness, tingling, and seizure, Psych: Negative for depression, anxiety, suicide ideation, homicidal ideation, and hallucinations. 11:17 Abdomen/GI: Positive for abdominal pain, nausea, vomiting, and diarrhea, flatulence. Exam: 11:15 Head/Face: Normocephalic, atraumatic. Eyes: Pupils equal round and reactive to light, snw extra-ocular motions intact. Lids and lashes normal. Conjunctiva and sclera are non-icteric and not injected. Cornea within normal limits. Periorbital areas with no swelling, redness, or edema. ENT: Nares patent. No nasal discharge, no septal abnormalities noted. Tympanic membranes are normal and external auditory canals are clear. Oropharynx with no redness, swelling, or masses, exudates, or evidence of obstruction, uvula midline. Mucous membranes moist. Neck: Trachea midline, no thyromegaly or masses palpated, and no cervical lymphadenopathy. Supple, full range of motion without nuchal rigidity, or vertebral point tenderness. No Meningismus. Chest/axilla: Normal chest wall appearance and motion. Nontender with no deformity. No lesions are appreciated. Cardiovascular: Regular rate and rhythm with a normal S1 and S2. No gallops, murmurs, or rubs. Normal PMI, no JVD. No pulse deficits. Respiratory: Lungs have equal breath sounds bilaterally, clear to auscultation and percussion. No rales, rhonchi or wheezes noted. No increased work of breathing, no retractions or nasal flaring. Back: No spinal tenderness. No costovertebral tenderness. Full range of motion. Skin: Warm, dry with normal turgor. Normal color with no rashes, no lesions, and no evidence of cellulitis. MS/ Extremity: Pulses equal, no cyanosis. Neurovascular intact. Full, normal range of motion. Neuro: Awake and alert, GCS 15, oriented to person, place, time, and situation. Cranial nerves II-XII grossly intact. Motor strength 5/5 in all extremities. Sensory grossly intact. Cerebellar exam normal. Normal gait. 11:15 Constitutional: The patient appears alert, anxious, obese, uncomfortable. 11:15 Abdomen/GI: Inspection: obese Bowel sounds: normal, Palpation: moderate abdominal tenderness, in all quadrants. 11:15 Psych: Behavior/mood is anxious, aggressive, Oriented to person, place, time. Vital Signs: 10:58 BP 114 / 74; Pulse 82; Resp 16 S; Temp 97.2(TE); Pulse Ox 99% on R/A; Weight 92.99 kg aa5 (R); Height 5 ft. 3 in. (R); 12:28 BP 94 / 68; Pulse 60; Resp 15; Pulse Ox 92% ; jl7 14:16 BP 100 / 63; Pulse 90; Resp 15; Pulse Ox 94% ; jl7 10:58 Body Mass Index 36.31 (92.99 kg, 160.02 cm) aa5 MDM: 11:08 Patient medically screened. snw 11:19 Differential diagnosis: bacterial infection, gastroenteritis, Crohn's. Data reviewed: snw vital signs, nurses notes. 07/04 11:14 Order name: CBC with Diff; Complete Time: 11:31 snw 07/04 11:14 Order name: CMP; Complete Time: 11:50 snw 07/04 11:14 Order name: Lipase; Complete Time: 11:50 snw 07/04 11:14 Order name: Test, Urine; Complete Time: 13:11 snw 07/04 11:14 Order name: Urinalysis w/ reflexes; Complete Time: 13:11 snw 07/04 11:14 Order name: Lactate w/ 2H reflex if indic.; Complete Time: 11:50 snw 07/04 11:14 Order name: IV Saline Lock; Complete Time: 11:32 snw 07/04 11:14 Order name: Labs collected and sent; Complete Time: 11:32 snw Administered Medications: 11:30 Drug: NS 0.9% IV 1000 ml Route: IV; Rate: 1 bolus; Site: right antecubital; bp 14:45 Follow up: IV Status: Completed infusion; IV Intake: 1000ml bp 11:30 Drug: Famotidine IVP 20 mg Route: IVP; Site: right antecubital; bp 14:44 Follow up: Response: No adverse reaction bp 11:30 Drug: Decadron - Dexamethasone IVP 10 mg Route: IVP; Site: right antecubital; bp 14:44 Follow up: Response: No adverse reaction bp 12:27 Drug: Potassium Chloride IV 20 mEq Route: IV; Rate: calculated rate; Site: right bp antecubital; 14:45 Follow up: IV Status: Completed infusion; IV Intake: 100ml bp Disposition: 15:26 I reviewed the patient's care provided by the Advanced Practice Provider and agree with jrOren the diagnosis and treatment plan. Disposition Summary: 07/04/22 14:23 Discharge Ordered Location: Home snw Condition: Stable snw Diagnosis - Irritable bowel syndrome with diarrhea snw Followup: snw - With: Emergency Department - When: As needed - Reason: Worsening of condition Followup: snw - With: Private Physician - When: 2 - 3 days - Reason: Recheck today's complaints, Continuance of care, Re-evaluation by your physician Discharge Instructions: - Discharge Summary Sheet snw - Crohn's Disease snw - Diet for Irritable Bowel Syndrome snw Forms: - Medication Reconciliation Form snw - Thank You Letter snw - Antibiotic Education snw - Prescription Opioid Use snw - Work release form ss Prescriptions: - mesalamine 500 mg Oral capsule, extended release - take 1 capsule by ORAL route 3 times per day; 30 capsule; Refills: 0, Product snw Selection Permitted Signatures: Dispatcher [employer] EDHI Kathia Lewis, [employer] Tressa Serra, RN RN aa5 Yony Espinoza, RN RN bp Sandeep Cavanaugh MD MD [email or web address] Corrections: (The following items were deleted from the chart) 11:03 11:01 Allergies: No Known Allergies; sabine aa5
[2022-07-04 16:58] VITALS: TEMP 97.2
[2022-07-04 17:01] VITALS: BP 100/63; O2SAT 94
== END 2022-07-04 14:46 | disposition home or self-care (01) ==
LOC: ER 10:42
DX: K58.0 Irritable bowel syndrome with diarrhea (principal); K50.90 Crohn's disease, unspecified, without complications; I10 Essential (primary) hypertension; G40.909 Epilepsy, unspecified, not intractable, without status epilepticus; G43.909 Migraine, unspecified, not intractable, without status migrainosus
CPT/HCPCS: 85025; 36415; 81025; 83605; 81003; 83690; 80053; J3480; J1100; J7040; J7030